=== PATIENT | male | born 1990 | race Caucasian/White ===

== ENCOUNTER 2017-09-22 15:42 | Inpatient (IN) | payer MEDICARE, MEDICAID ==
[2017-09-22 16:18] LABS: Bilirubin Small (Negative); Blood, Urine Small (Negative); Clarity TURBID (Clear); Glucose, Urine (Dipstick) Negative (Negative); Leukocyte Trace (Negative); Nitrite Negative (Negative); Protein, Urine (Dipstick) 100 mg/dL (Neg-Trace); Specific Gravity, Urine 1.033 (1.002-1.036); pH, Urine 5.5 (5.0-9.0)
[2017-09-22 16:24] LABS: RBC/HPF 0-3 HPF (0-3); WBC/HPF 0-3 HPF (0-3)
[2017-09-22 16:26] LABS: Mean Corpuscular HGB CONC 33.5 g/dL (32.0-36.0); Mean Corpuscular Hemoglobin 36.3 pg (27.0-31.0); RBC Distribution Width 12.3 % (11.5-14.5); Red Blood Cell (RBC) Count 5.52 mill/uL (4.70-6.10); White Blood Cell (WBC) Count 20.6 thou/uL (4.8-10.8)
[2017-09-22 16:27] LABS: Pathc Cast-AUWi Flag 12.06 (0-2.49); Yeast-AUWi Flag 65.3 (0-25.0)
[2017-09-22 16:39] LABS: Bacteria/HPF 3+ HPF (None Seen); Hyaline Casts/LPF 0-3 HYALINE CAST LPF (0-3 Hyaline); Renal Epithelial None Seen HPF (0-3); Transitional Epithelial NONE SEEN HPF (0-3)
[2017-09-22 16:40] LABS: Manual Microscopic Reviewed? No Path Casts Seen
[2017-09-22 16:45] LABS: Base Excess-Venous -2.5 mmol/L (-30.0-30.0); Bicarbonate (HCO3v) 20.4 mmol/L (1.0-85.0); CO2 Tension (PvCO2) 31.5 mmHg (41.0-51.0); Calcium, Ionized 1.02 mmol/L (1.12-1.32); Hemoglobin - Calc 22.7 g/dL (12.0-18.0); O2 Tension (PvO2) 83.3 mmHg (35.0-45.0); Potassium 7.1 mmol/L (3.4-4.7); T. Carbon Dioxide 21.4 mmol/L (1.0-85.0); pH (Venous) 7.419 (7.35-7.45); vO2 Saturation-calc 96.6 % (0.0-100.0)
[2017-09-22 16:45] LABS: Band 11 % (5-11); Lymphocytes 4 % (21-51); MDiff Complete? YES; Mean Platelet Volume 8.4 fL (7.4-10.4); Monocytes 6 % (0-10); Neutrophil 79 % (42-75); PLT Morphology Comment Appears Decreased; Platelet Count 111 thou/uL (130-400)
[2017-09-22 16:53] LABS: Troponin I 0.103 ng/mL (< 0.028)
[2017-09-22 16:54] LABS: ALT (SGPT) 13 U/L (8-55); AST (SGOT) 52 U/L (5-34); Albumin 3.9 g/dL (3.5-5.0); Alkaline Phosphatase 84 U/L (40-150); Anion Gap 20 mmol/L (10-20); BUN (Urea Nitrogen) 50 mg/dL (8.9-20.6); Bilirubin, Total 0.7 mg/dL (0.2-1.2); Calc. Creatinine Clearance 0 mL/min (70-130); Calcium 9.2 mg/dL (7.8-10.44); Carbon Dioxide 20 mmol/L (22-29); Chloride 99 mmol/L (98-107); Estimated GFR-MDRD 38; Globulin 2.8 g/dL (2.4-3.5); Glucose 95 mg/dL (70-105); Protein, Total 6.7 g/dL (6.0-8.3); Sodium 132 mmol/L (136-145)
[2017-09-22 17:01] LABS: Potassium 6.7 mmol/L (3.5-5.1)
[2017-09-22] MEDS ORDERED: Sodium Bicarb 50 MEQ/50 ML Abboject 8.4% SYRINGE ONE (17:22)
[2017-09-22] MEDS ORDERED: Dextrose 50% Abboject 50 ML SYRINGE ONE (17:22)
[2017-09-22] MEDS ORDERED: Insulin Regular 300 UNITS/3 ML VIAL ONE (17:22)
[2017-09-22] MEDS ORDERED: Aspirin 325 MG TAB ONE (17:22)
[2017-09-22] MEDS ORDERED: Calcium Gluc 4.6 MEQ/10 ML (100 MG/ML) ONE (17:22)
[2017-09-22] MEDS ORDERED: Albuterol Sulfate 2.5 mg/3 ml Neb ONE (17:26)
[2017-09-22] MEDS ORDERED: Albuterol Sulfate 2.5 mg/0.5 ml Neb ONE (17:26)
[2017-09-22] MEDS ORDERED: Sodium Chloride 0.9% 1,000 ML IV SCH (19:34)
[2017-09-22 19:45] LABS: Troponin I 0.109 ng/mL (< 0.028)
[2017-09-22] MEDS: Sodium Chloride 0.9% 1,000 ML IV SCH (21:26)
[2017-09-22] MEDS: Famotidine/PF 20 mg/2ml Vial SLOW IVP SCH (21:27)
[2017-09-22] MEDS: Morphine 4 MG/ML Carpuject SLOW IVP PRN (21:31)
--- NOTE | 2017-09-22 22:27 | HP ---
DATE OF ADMISSION: 09/22/2017 TIME OF SERVICE: 1900 hours. CHIEF COMPLAINT: Transfer for acute renal failure. HISTORY OF PRESENT ILLNESS: Mr. Sommers is a 26-year-old white male, who is a resident of the [facility]. He has some baseline mental retardation, psychiatric issues including bipolar disorde r, PTSD and mild mental retardation. He was in normal state of health until today, started complaining of abdominal pain. He was having s ome nausea and vomiting, unable to keep fluids down, so he was sent to [facility] in [place] for evaluation. There, he was found to have a lipase of 8200, his creatinine was noted to be 2 .66 and his potassium was 5.7. He was given IV fluids, treatment for high potassium and transferred here. On arrival here, his initial potassium was 7.1, repeated was down to 6.7. Creatinine was improved do wn to 2.13, but his BUN was still elevated at 50 and certainly greater than in the [address] sc an from the outside hospital was reviewed and showed constipation and pancreatitis and we were subseq uently called for admission. Initial lactic acid 3.4, now down to 2.1. The patient says he is still having some pain, but had no further nausea or vomiting. He denies any fevers and chills. No chest pain or difficulty breathing. No diarrhea and is chronically constipate d. PAST MEDICAL HISTORY: 1. Hypertension. 2. Chronic constipation. 3. Hypothyroidism. 4. Seizure disorder. 5. Bilateral axillary infections in the past, looks like hidradenitis. 6. Mild mental retardation. 7. Possible Parkinson disease. 8. PTSD. 9. Bipolar disorder. 10. Nicotine dependence. 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 12. Antisocial personality disorder. PAST SURGICAL HISTORY: Include right medial index finger and nerve transposition. HOME MEDICATIONS: Per the chart sent with the patient; 1. Divalproex 1500 mg ER at bedtime. 2. Docusate 200 mg p.o. b.i.d. 3. Levothyroxine 137 mcg daily. 4. Loratadine 10 mg daily. 5. Oxcarbazepine 300 mg p.o. nightly and 600 mg 3 times a day at 0730 hours, 1200 hours, 2030 hours. 6. Polyethylene glycol 17 grams daily. 7. Benztropine 1 mg oral t.i.d. 8. Clonazepam 1 mg p.o. daily at noon and 2 mg p.o. at bedtime. 9. Haloperidol 4 mg p.o. q.a.m., 2 mg p.o. at bedtime and 5 mg p.o. q.p.m. 10. Ziprasidone 40 mg p.o. at noon and 20 mg p.o. at bedtime. 11. Mag citrate as needed for constipation. 12. Bisacodyl 10 mg rectal suppository as needed for constipation. 13. Calcium carbonate 600 mg tablets 1500 mg totally daily. 14. Terbinafine 250 mg daily. 15. Amantadine 100 mg p.o. b.i.d. 16. Benazepril 10 mg p.o. daily. 17. Zinc gluconate 50 mg p.o. t.i.d. 18. Melatonin 6 mg p.o. at bedtime. 19. Trileptal 300 mg p.o. at bedtime. ALLERGIES: CHLORPROMAZINE, LORAZEPAM and RISPERIDONE. FAMILY HISTORY: Unknown. SOCIAL HISTORY: Significant for tobacco about 1/2 pack per day. No IV drug abuse and no alcohol use . REVIEW OF SYSTEMS: A 10-point review of systems was performed. The patient declined any other probl ems other than abdominal pain. Due to his psychiatric and mental retardation, I am unsure of the rel iability. PHYSICAL EXAMINATION: VITAL SIGNS: Temperature 99.2, pulse 118, blood pressure 169/111, respiratory rate 36, satting 97% o n room air. GENERAL: He is awake. He is alert. He is oriented x3. He is an overweight, well-nourished, white male, who appears to be in no acute distress. He is tachypneic and breathing shallow, but appears co mfortable. HEENT: Normocephalic, atraumatic. His pupils are equal, round, and reactive to light bilaterally, m ucous membranes are moist. He had no visible lesions. No thrush. NECK: Supple, without lymphadenopathy, JVD, or thyromegaly. LUNGS: Clear. He has no wheezes, no rales, no rhonchi with good air movement. ABDOMEN: Abdomen is slightly firm. It is distended and slightly tympanitic. He has got quiet bowel sounds in all 4 quadrants, but they are present. He has got tenderness diffusely without rebound, r igidity or guarding. EXTREMITIES: Showed no cyanosis, no clubbing, no edema. SKIN: Warm, moist, and well perfused. He has no active rashes or lesions. He does have some scarri ng in the bilateral axilla. NEUROLOGIC: Shows cranial nerves II-XII are grossly intact. Does have some right lateral strabismus , but the extraocular muscles do appear functional. He has 5/5 strength in all 4 of his extremities. No focal deficits. MUSCULOSKELETAL: Normal to inspection. He has no large joint inflammation or palpable effusions. LABORATORY DATA: Sodium is 132, potassium on arrival 6.7, chloride 99, bicarbonate 20, BUN 50, creat inine 2.13 down from 2.66 earlier, glucose of 95, and calcium 9.2. Liver functions are normal except for an AST slightly elevated at 52. CBC showed a white count of 28.6 down to 24,000 at the outside facility. Hemoglobin is 20.0, hematocrit of 59.8, and platelet count is 111,000. He has 79% granulo cytes, 11% bands, and 4% lymphocytes. VBG was fairly normal. Urinalysis showed 3+ bacteria, 3-6 epithelial cells, trace leukocyte esterase and negative nitrite. CK-MB was slightly elevated at 6.0. Troponin I was indeterminate at 0.013. Lactic acid initially 3. 4 down to 2.1 here. At the outside facility, the amylase was 1233 and lipase was 8295. A CT scan showed enlargement of the pancreas. There was no evidence of necrosis and no fluid collect ions, it also showed diffuse constipation. ASSESSMENT AND PLAN: 1. Acute pancreatitis. The patient per the records has never had this before. Make him n.p.o. Vikram ce him on IV fluids and get serial lipase in the morning. A CT scan did not describe any ductal dila tion. Still has gallbladder in place, but there is a slight gallbladder enlargement without evidence of stones. We will watch him overnight. Liver functions again are fairly normal. 2. Hypertension. We will have p.r.n. hydralazine available as he is n.p.o. for now. 3. Chronic constipation, have to come out this later. The patient takes MiraLax, docusate, and bisa codyl regularly. 4. Hypothyroidism on levothyroxine. We will hold that for now as he is n.p.o. 5. Nicotine dependence. 6. History of seizure disorder, on oxcarbazepine and divalproex. These will be on hold as he is n.p .o. 7. History of mental retardation. 8. History of post traumatic stress disorder, bipolar disorder, antisocial personality disorder. Hi s oxcarbazepine, benztropine, clonazepam, haloperidol, ziprasidone, amantadine and Trileptal will be on hold for now.
[2017-09-22 22:49] LABS: Potassium 6.4 mmol/L (3.5-5.1)
[2017-09-22] MEDS: Ondansetron HCl/PF 4 MG/2 ML Vial IVP PRN (23:06)
[2017-09-23] MEDS: Morphine 4 MG/ML Carpuject SLOW IVP PRN ×5 (02:54→21:55)
[2017-09-23] MEDS ORDERED: Sodium Chloride 0.9% 500 ML IVPB SCH (04:15)
[2017-09-23] MEDS: Sodium Chloride 0.9% 1,000 ML IV SCH ×2 (04:45→13:27)
[2017-09-23 06:03] LABS: ALT (SGPT) 12 U/L (8-55); AST (SGOT) 40 U/L (5-34); Albumin 3.2 g/dL (3.5-5.0); Alkaline Phosphatase 77 U/L (40-150); Anion Gap 14 mmol/L (10-20); BUN (Urea Nitrogen) 43 mg/dL (8.9-20.6); Bilirubin, Total 0.5 mg/dL (0.2-1.2); Calc. Creatinine Clearance 118 mL/min (70-130); Calcium 9.1 mg/dL (7.8-10.44); Carbon Dioxide 21 mmol/L (22-29); Chloride 101 mmol/L (98-107); Estimated GFR-MDRD 61; Globulin 2.7 g/dL (2.4-3.5); Glucose 90 mg/dL (70-105); Magnesium 1.8 mg/dL (1.6-2.6); Potassium 6.2 mmol/L (3.5-5.1); Protein, Total 5.9 g/dL (6.0-8.3); Sodium 130 mmol/L (136-145)
[2017-09-23 06:50] LABS: Hemoglobin 17.6 g/dL (14.0-18.0); Mean Corpuscular HGB CONC 33.2 g/dL (32.0-36.0); Mean Corpuscular Hemoglobin 35.9 pg (27.0-31.0); Mean Platelet Volume 8.3 fL (7.4-10.4); Platelet Count 120 thou/uL (130-400); RBC Distribution Width 12.3 % (11.5-14.5); Red Blood Cell (RBC) Count 4.91 mill/uL (4.70-6.10); White Blood Cell (WBC) Count 19.4 thou/uL (4.8-10.8)
[2017-09-23] MEDS: Famotidine/PF 20 mg/2ml Vial SLOW IVP SCH ×2 (07:48→20:27)
[2017-09-23] MEDS ORDERED: FLU VACC QS2017-18 36 mo. & older 0.5 ML SYRINGE IM ONE (09:00)
[2017-09-23 09:06] LABS: Band 34 % (5-11); Eosinophils 1 % (0-10); Lymphocytes 7 % (21-51); MDiff Complete? YES; Macrocytosis SLIGHT = 6-15 cells (100X) (0-5/hpf); Metamyelocyte 1 % (0-0); Monocytes 7 % (0-10); Neutrophil 49 % (42-75); PLT Morphology Comment Appears Decreased; Reactive Lymphocytes 1 % (0-10)
[2017-09-23] MEDS: Meropenem 1 GM in Sterile Water 20 ML SLOW IVP SCH ×2 (13:27→21:55)
[2017-09-23] MEDS ORDERED: Meropenem 1 GM in Sodium Chloride 0.9% 100 ML IVPB SCH (14:00)
--- NOTE | 2017-09-23 15:15 | PDOC.PN ---
- Subjective Encounter Start Date: 09/23/17 Encounter Start Time: 15:13 Subjective: Seen and examined gradually getting aggitated - Objective Resuscitation Status: Resuscitation Status FULL:Full Resuscitation Vital Signs & Weight: Vital Signs (12 hours) Temp Pulse Resp BP Pulse Ox 09/23/17 11:26 98.4 F 125 H 17 142/92 H 90 L 09/23/17 08:00 99.0 F 121 H 24 H 140/84 92 L 09/23/17 04:20 100.6 F H 120 H 40 H 137/87 90 L Weight Weight 229 lb 8 oz Result Diagrams: 09/23/17 05:04 09/23/17 05:04 Additional Labs: Accuchecks 09/22/17 18:57 POC Glucose 104 Phys Exam - Physical Examination Constitutional: NAD HEENT: PERRLA, moist MMs, sclera anicteric, TM's clear Neck: no nodes, no JVD, supple, full ROM Respiratory: no wheezing, no rales, no rhonchi, clear to auscultation bilateral Cardiovascular: RRR, no significant murmur, no rub Gastrointestinal: non-tender, no distention, positive bowel sounds Musculoskeletal: no edema, pulses present Dx/Plan (1) Pancreatitis Code(s): K85.90 - ACUTE PANCREATITIS WITHOUT NECROSIS OR INFECTION, UNSP Status: Acute (2) Hyperkalemia Code(s): E87.5 - HYPERKALEMIA Status: Acute (3) Metabolic acidemia Code(s): E87.2 - ACIDOSIS Status: Acute (4) Mental retardation Code(s): F79 - UNSPECIFIED INTELLECTUAL DISABILITIES Status: Acute (5) Post traumatic stress disorder Code(s): F43.10 - POST-TRAUMATIC STRESS DISORDER, UNSPECIFIED Status: Acute (6) Hypothyroid Code(s): E03.9 - HYPOTHYROIDISM, UNSPECIFIED Status: Acute (7) ARF (acute renal failure) Status: Acute - Plan PT/OT, health care social worker Resume all psychotropic meds -: Change IVF to Hco3 based infusion -: Permanantly d/c Lotensin due to hyperkalemia * .
--- NOTE | 2017-09-23 15:27 | CON ---
DATE OF CONSULTATION: 09/23/2017 HISTORY: He is a 26-year-old mentally challenged gentleman from [email or web address] who has been admi tted for abdominal pain over 24 hours. He was taken to [facility], transferred to this hospit al with renal failure, pancreatitis and elecrolytes. Obviously the patient is unable to give any history. He is saying he has pain in his abdomen. When I examine his abdomen he says "do not touch my abdomen". There is a acid supervisor from [employer] that says he has been there since age of 9. He smokes a pack a day, but he is unable to drink any alcoho l there. He denies any difficulty breathing. PAST MEDICAL HISTORY: As outlined, hypertension, hypothyroidism, tobacco abuse, seizure disorders, c hronic skin changes. Mental retardation. Post-traumatic syndrome. PAST SURGICAL HISTORY: Some kind of surgery on his index finger. MEDICATIONS: They brought a list of his medicines from the long-term includes Divalproex 1500 mg ER once a day, Synthroid 137, loratadine 10, oxcarbazepine 300 at nighttime 600 3 times a day, polyet hylene glycol, benztropine 1 mg, clonazepam 2 mg, Haldol 5 mg at nighttime, 4 mg orally with meals, z iprasidone 40 mg at noon, 20 mg at nighttime, magnesium, several diuretics, Terbinafine 250 once a day, amantadine 100, benazepril 10, zinc, melatonin 6, clonazepam 0.125 in the morning, clonazepam 1 mg at noon, Haldol 2 mg at nighttime and Trileptal 3 mg a day. SOCIAL HISTORY: Tobacco use. FAMILY HISTORY: Unobtainable. There are no family members according to the acid supervisor. None come by there at all. ALLERGIES: Apparently include THORAZINE, ATIVAN and RISPERDAL. REVIEW OF SYSTEMS: Obviously review of systems difficult to obtain. PHYSICAL EXAMINATION: VITAL SIGNS: Sats are 92 on 2 liters, respirations 24, he is , pulse 121, temperature 99, blood pressure 140/84. CHEST: Chest revealed decreased breath sounds. CARDIAC: Sinus tach. ABDOMEN: Distended. LABORATORY: White count 19,000, H&H 17 and 33, platelet count is 120. Electrolytes; sodium 130, pot assium venous 6.2, BUN and creatinine 41 and 0.40. Albumin is 3.2. There is a CT report brought from the hospital which shows evidence of presumably pancreatitis, fecal impaction, diverticulitis. IMPRESSION: 1. Acute abdomen and possibly pancreatitis secondary to gallbladder disease. 2. Mental retardation. 3. Personality disorder. 4. Polypharmacy. 5. Renal failure. 6. Tobacco abuse. PLAN: I would empirically start him on broad-spectrum antibiotics. Continue supportive care. GI in put. I will follow. Consultation note of which 70 minutes, 50% spent at the bedside with direct patient care.
[2017-09-23] MEDS: Ziprasidone 20 MG CAP PO SCH ×2 (16:31→20:26)
[2017-09-23] MEDS: Haloperidol 1 MG TAB PO SCH (16:31)
[2017-09-23] MEDS: Haloperidol 5 MG TAB PO SCH (16:31)
[2017-09-23] MEDS: Sodium Bicarbonate 150 MEQ in Dextrose 5% in Water 1,000 ML IV SCH (17:39)
--- NOTE | 2017-09-23 19:10 | CON ---
DATE OF CONSULTATION: 09/23/2017 HISTORY OF PRESENT ILLNESS: The patient is a 26-year-old mentally retarded gentleman who was transfe rred here from [facility] in [place] for pancreatitis. The patient reports that he is h aving abdominal pain, but also wants to eat. He denies any prior history of pancreatitis; however, jung max is a poor historian. MEDICATIONS: Include ziprasidone 20 mg at bedtime and q.p.m.; benztropine 0.5 mg q.p.m., q.a.m., and noon; Senna 1 p.o. daily for constipation; Bisacodyl 10 mg rectal suppository b.i.d. for constipatio n; haloperidol 4 mg q.a.m. and q.p.m.; calcium and vitamin D supplementation; Lamisil 250 mg p.o. brent ly; amantadine 100 mg 1 p.o. b.i.d.; benazepril 10 mg p.o. daily; zinc gluconate 50 mg p.o. t.i.d.; c lonazepam 0.125 mg 1 p.o. q.a.m.; MiraLax 17 grams p.o. daily; levothyroxine 137 mcg p.o. daily; Depa kote 1500 mg p.o. at bedtime; Trileptal 300 mg p.o. at bedtime; loratadine 10 mg p.o. q.a.m. ALLERGIES: Include THORAZINE, ATIVAN, and RISPERDAL. SOCIAL HISTORY: [facility]. FAMILY HISTORY: Unobtainable. REVIEW OF SYSTEMS: Unobtainable. PAST MEDICAL/SURGICAL HISTORY: Includes hypertension, constipation, hypothyroidism, seizure disorder , and mental retardation. PHYSICAL EXAMINATION: GENERAL: Shows a young mentally retarded white male, in no acute distress. VITAL SIGNS: Temperature 99.6, pulse of 124, respiratory rate 24, blood pressure 131/82. HEENT: Unremarkable. NECK: Supple. CHEST: Clear. CARDIOVASCULAR: Regular rate and rhythm. ABDOMEN: Somewhat tender diffusely with some rebound and tympanitic diffusely. RECTAL: Deferred. EXTREMITIES: Normal. NEUROLOGIC: Nonfocal. [facility], sodium 129, potassium 6.7, chloride 95, BUN 46, creatinine 2.6 6, AST of 58, ALT of 15, lipase of 80-95, amylase of 12.33. White blood cell count was 22.9 with hem oglobin of 20.7, hematocrit 58.0. Lactic acid is 34, glucose of 60. Abdominal series shows constipa tion. CT of the abdomen and pelvis without contrast shows diffuse enlargement of pancreas associated with peripancreatic stranding and a moderate amount of free fluid. Pancreas was heterogeneous, larg e fecal load was noted, duodenal diverticulum, ground glass attenuation at both lung bases, and small hiatal hernia. CBC today shows a white blood cell count of 19.4, hemoglobin 17.6, hematocrit 53.1 w ith MCV of 108, platelet count 120. Chemistry shows sodium 130, potassium 6.2, CO2 21, BUN 43, creat inine 1.40, total bilirubin of 0.5, AST of 40. Urinalysis shows small blood. ASSESSMENT: 1. Acute idiopathic pancreatitis. 2. Prerenal azotemia. 3. Hyperkalemia. 4. Mental retardation. RECOMMENDATIONS: 1. More aggressive IV fluids. 2. Possibly try to get a gallbladder ultrasound once episode is improved. 3. Triglyceride level if not already performed. 4. Continue n.p.o. status.
[2017-09-23] MEDS: OXcarbazepine 300 MG TAB PO SCH ×2 (20:25→20:26)
[2017-09-23] MEDS: Amantadine HCl 100 mg Capsule PO SCH (20:26)
[2017-09-23] MEDS: clonazePAM 1 MG TAB PO SCH (20:26)
[2017-09-23] MEDS: Benztropine 1 MG TAB PO SCH (20:26)
[2017-09-23] MEDS: Pantoprazole 40 MG VIAL IVP SCH (20:27)
[2017-09-23] MEDS: Melatonin 3 MG TAB PO SCH (20:27)
[2017-09-24] MEDS ORDERED: Acetaminophen 650 MG Suppository PR PRN (00:34)
[2017-09-24] MEDS ORDERED: Acetaminophen 1,000 MG in Premix Bag 1 BAG IVPB SCH (00:45)
[2017-09-24] MEDS: Sodium Bicarbonate 150 MEQ in Dextrose 5% in Water 1,000 ML IV SCH ×3 (02:26→20:21)
[2017-09-24] MEDS: Morphine 4 MG/ML Carpuject SLOW IVP PRN ×3 (03:47→17:53)
[2017-09-24] MEDS: Levothyroxine Sodium 25 MCG TAB PO SCH (06:14)
[2017-09-24] MEDS: Meropenem 1 GM in Sterile Water 20 ML SLOW IVP SCH ×3 (06:14→21:40)
[2017-09-24] MEDS: Levothyroxine Sodium 112 MCG TAB PO SCH (06:14)
[2017-09-24 06:27] LABS: ALT (SGPT) 10 U/L (8-55); AST (SGOT) 22 U/L (5-34); Albumin 2.8 g/dL (3.5-5.0); Alkaline Phosphatase 85 U/L (40-150); Anion Gap 11 mmol/L (10-20); BUN (Urea Nitrogen) 27 mg/dL (8.9-20.6); Bilirubin, Total 0.6 mg/dL (0.2-1.2); Calc. Creatinine Clearance 189 mL/min (70-130); Calcium 8.9 mg/dL (7.8-10.44); Carbon Dioxide 26 mmol/L (22-29); Chloride 96 mmol/L (98-107); Estimated GFR-MDRD Greater than 90; Globulin 2.7 g/dL (2.4-3.5); Glucose 126 mg/dL (70-105); Lipase 296 U/L (8-78); Potassium 4.3 mmol/L (3.5-5.1); Protein, Total 5.5 g/dL (6.0-8.3); Sodium 129 mmol/L (136-145)
[2017-09-24 06:30] LABS: Band 20 % (5-11); Hemoglobin 15.6 g/dL (14.0-18.0); Lymphocytes 2 % (21-51); MDiff Complete? YES; Mean Corpuscular HGB CONC 33.6 g/dL (32.0-36.0); Mean Platelet Volume 8.2 fL (7.4-10.4); Monocytes 27 % (0-10); Neutrophil 51 % (42-75); PLT Morphology Comment Appears Decreased; Platelet Count 102 thou/uL (130-400); Red Blood Cell (RBC) Count 4.33 mill/uL (4.70-6.10); White Blood Cell (WBC) Count 11.5 thou/uL (4.8-10.8)
--- NOTE | 2017-09-24 07:54 | ULT ---
GALLBLADDER ULTRASOUND: HISTORY: Pancreatitis, constipation, abdominal tenderness to touch. COMPARISON: None. TECHNIQUE: Utilizing a multihertz transducer, sonographic imaging of the right quadrant was performed in the omayra gitudinal and transverse plane. FINDINGS: Pancreas is obscured by bowel gas. A small right-sided pleural effusion is noted. Main portal vein is patent. Appropriate directional flow. Hepatic parenchyma has a normal echotexture. No hepatic masses or intrahepatic dilatation. Contour of the hepatic margin is maintained. Right upper lobe measures 19.7 cm. The right kidney has an overall normal echotexture. No hydronephrosis. The right kidney measures 5. 2 x 6.0 x 13.3 cm. Within the lumen of the gallbladder, there is evidence of sludge and stones. Gallbladder is mildly d istended. There is no pericholecystic fluid. Gallbladder wall thickness is at the upper limits of n ormal. Pv Installer Tech reports tenderness throughout the entire abdomen. Suboptimal evaluation of the common bile duct. IMPRESSION: Sonographic evidence of cholelithiasis with findings that are suggestive of cholecystitis. HIDA scan is recommended. POS: [facility]
[2017-09-24] MEDS: Pantoprazole 40 MG VIAL IVP SCH ×2 (08:43→20:21)
[2017-09-24] MEDS: Famotidine/PF 20 mg/2ml Vial SLOW IVP SCH ×2 (08:44→20:21)
[2017-09-24] MEDS: clonazePAM 0.5 MG TAB PO SCH (08:44)
[2017-09-24] MEDS: clonazePAM 1 MG TAB PO SCH ×2 (08:44→20:23)
[2017-09-24] MEDS: Haloperidol 1 MG TAB PO SCH ×2 (08:45→17:58)
[2017-09-24] MEDS: Benztropine 1 MG TAB PO SCH ×3 (08:45→20:22)
[2017-09-24] MEDS: Terbinafine 250 MG TAB PO SCH (08:48)
[2017-09-24] MEDS: Terbinafine 1% 30 GM TUBE TOP SCH (08:49)
[2017-09-24] MEDS: OXcarbazepine 300 MG TAB PO SCH ×4 (08:49→20:23)
[2017-09-24] MEDS: Amantadine HCl 100 mg Capsule PO SCH ×2 (08:49→20:22)
[2017-09-24] MEDS ORDERED: clonazePAM 0.5 MG TAB PO SCH (09:00)
--- NOTE | 2017-09-24 09:03 | RAD ---
PORTABLE CHEST 1 VIEW: Date: 09/24/17 Time: 0824 hours HISTORY: CHF. FINDINGS/IMPRESSION: The heart size is borderline. Mild bibasilar infiltrates are noted. No pneumothoraces, girish pulmonar y edema, or large effusions are seen. POS: [facility]
[2017-09-24] MEDS: Ziprasidone 20 MG CAP PO SCH ×3 (11:16→20:22)
--- NOTE | 2017-09-24 11:42 | PRG ---
DATE OF SERVICE: 09/24/2017 He is awake, alert, responsive. Denies any abdominal pain. PHYSICAL EXAMINATION: VITAL SIGNS: Blood pressure 140/82, O2 sat 98 on room air, temperature 99, respiratory rate 18. CHEST: Chest revealed decreased breath sounds without any wheezing. CARDIAC: Normal S1-S2. No gallops. LABORATORY: His white count 11,000, H&H 15 and 46, platelet count 102, a big left shift, 30 segs. L actate . Sodium 129, alkaline phosphatase is normal. Lipase 296. IMPRESSION: 1. Pancreatitis secondary to probably gallbladder disease. 2. Bipolar mental retardation. 3. Electrolyte imbalance. PLAN: He probably needs surgical consult for his abdominal pain and possibly gallbladder associated pancreatitis. Continue meropenem, continue supportive care, continue neb treatments. I will follow.
--- NOTE | 2017-09-24 11:46 | PQF ---
DATE: 09-24-17 ATTN: DR. INDRA CHASE Please exercise your independent, professional judgment in responding to the clarification form. Clinical indicators are provided on the bottom of this form for your review Please check appropriate box(es): [ ] Sepsis [ ] SIRS due to non-infectious process (please specify etiology) [ ] with organ dysfunction [ ] without organ dysfunction [ ] Severe sepsis with acute organ dysfunction of: (Examples: respiratory failure, encephalopathy, acute kidney failure, other) [ ] Other diagnosis [ ] Unable to determine In addition, please specify: Present on Admission (POA): [ ] Yes [ ] No [ ] Unable to determine For continuity of documentation, please document condition throughout progress notes and discharge summary. Thank You. CLINICAL INDICATORS - SIGNS / SYMPTOMS / LABS ER: XFER SEPSIS WBC: 2-14-18: 20.6 2-15-18: 19.4 2-16-18: 11.5 BANDS: 2-14-18: 11 2-15-18: 34 2-16-18: 20 TEMP: 2-14-18: 101 2-15-18: 101, 100.8, 100.6, 100.5, 2-16-18: 101.4, 99.8 PULSE: ( ER) 117, 118, 123, 124, RR: (ER) 28, 36, 36, 34, 43, 42, 40, 35, 25 H&P: INITIAL LACTIC ACID 3.4, NOW DOWN TO 2.1, ACUTE PANCREATITIS CONSULT NOTE DR. BRADLEY : ACUTE ABDOMEN AND POSSIBLY PANCREATITIS SECONDARY TO GALLBLADDER DISEASE RISK FACTORS: CONSULT NOTE DR. BRADLEY : ACUTE ABDOMEN AND POSSIBLY PANCREATITIS SECONDARY TO GALLBLADDER DISEASE TREATMENTS: (ER) IVF (MAR) MEROPENEM DAILY LABS (This form is maintained as a part of the permanent medical record) 2014 [employer] All Rights Reserved [email or web address] Office: [phone] [facility]
--- NOTE | 2017-09-24 14:34 | RAD ---
ABDOMEN 2 VIEWS: Date: 09/24/17 HISTORY: Constipation. COMPARISON: None. FINDINGS: There appear to be multiple air-filled loops of small bowel. There is also moderate distention of the colon. There appears to be air attenuation down to the level of the distal descending colon. The elaine unt of fecal material is not entirely compatible with constipation. However, given air-filled loops o f small bowel, the possibility of an obstructive process must be considered. Ileus must also be consi dered given colonic prominence. Better interrogation with CT is recommended. IMPRESSION: 1. Fecal material without definite radiographic evidence of constipation. 2. Prominent air-filled loops of small bowel with some mild chronic distention. Ileus is favored. A partial obstructive process cannot be excluded. CT is recommended. POS: [facility]
--- NOTE | 2017-09-24 15:33 | PDOC.PN ---
- Subjective Encounter Start Date: 09/24/17 Encounter Start Time: 15:33 Subjective: Seen and examined feeling sick - Objective Resuscitation Status: Resuscitation Status FULL:Full Resuscitation Vital Signs & Weight: Vital Signs (12 hours) Temp Pulse Resp BP Pulse Ox 09/24/17 11:40 99.8 F H 111 H 22 H 129/84 87 L 09/24/17 11:31 94 L 09/24/17 11:28 113 H 25 H 94 L 09/24/17 08:16 99.8 F H 117 H 23 H 85 L 09/24/17 07:10 99.1 F 19 142/87 H 09/24/17 05:33 91 L 09/24/17 03:55 98.6 F 113 H 25 H 137/81 91 L Weight Weight 229 lb 8 oz I&O: 09/23/17 09/24/17 09/25/17 06:59 06:59 06:59 Intake Total 1950 Output Total 900 Balance 1050 Result Diagrams: 09/24/17 04:51 09/24/17 04:51 Phys Exam - Physical Examination Constitutional: NAD HEENT: PERRLA, moist MMs, sclera anicteric, TM's clear, oral pharynx no lesions Neck: no nodes, no JVD, supple, full ROM Respiratory: no wheezing, no rales, no rhonchi Cardiovascular: RRR, no significant murmur, no rub Gastrointestinal: soft, non-tender, no distention, positive bowel sounds Dx/Plan (1) Pancreatitis Code(s): K85.90 - ACUTE PANCREATITIS WITHOUT NECROSIS OR INFECTION, UNSP Status: Acute (2) Hyperkalemia Code(s): E87.5 - HYPERKALEMIA Status: Acute (3) Metabolic acidemia Code(s): E87.2 - ACIDOSIS Status: Acute (4) Mental retardation Code(s): F79 - UNSPECIFIED INTELLECTUAL DISABILITIES Status: Acute (5) Post traumatic stress disorder Code(s): F43.10 - POST-TRAUMATIC STRESS DISORDER, UNSPECIFIED Status: Acute (6) Hypothyroid Code(s): E03.9 - HYPOTHYROIDISM, UNSPECIFIED Status: Acute (7) ARF (acute renal failure) Status: Acute (8) Cholelithiasis Code(s): K80.20 - CALCULUS OF GALLBLADDER W/O CHOLECYSTITIS W/O OBSTRUCTION Status: Acute (9) Cholecystitis Code(s): K81.9 - CHOLECYSTITIS, UNSPECIFIED Status: Acute (10) Pneumonia Code(s): J18.9 - PNEUMONIA, UNSPECIFIED ORGANISM Status: Acute (11) UTI (urinary tract infection) Status: Acute - Plan continue antibiotics, social media analyst, respiratory therapy Appreciate GI and pulmonary input -: Surgery consulted -: NPO * .
--- NOTE | 2017-09-24 17:35 | CON ---
DATE OF CONSULTATION: 09/24/2017 CHIEF COMPLAINT: Abdominal pain. HISTORY OF PRESENT ILLNESS: This is a 26-year-old male who is a resident of [facility] who presents with a history of severe abdominal pain, admitted to the medical service and has been found to have pancreatitis. He also has gallstones. I was consulted for question of cholecystectomy. Th ere is no previous history of gallstones, jaundice, or pancreatitis. Ultrasound does show gallstones and sludge with a suboptimal visualization of the common bile duct. The patient has been complainin g of pain all day. Plain x-rays of the abdomen revealed pre-significant fecal material in the colon. The history is very limited secondary to the patient's mental disease, but he does state that his p ain is improved. PAST MEDICAL HISTORY: Includes hypertension, chronic constipation, seizure disorder, PTSD bipolar, p aranoid and antisocial personality disorders. PAST SURGICAL HISTORY: Finger. MEDICINES: See long list. ALLERGIES: CHLORPROMAZINE, LORAZEPAM, RISPERIDONE. SOCIAL HISTORY: He does smoke half a pack a day. No alcohol or other drugs. REVIEW OF SYSTEMS: Otherwise, negative unless described above. PHYSICAL EXAMINATION: VITAL SIGNS: His pulse is 112. Blood pressure is 142/79, pulse is 112, temperature 99.3. HEENT: Sclerae are anicteric. Oropharynx clear. NECK: No lymphadenopathy. CHEST: Clear. HEART: Increased rate, regular rhythm without murmurs. ABDOMEN: Diffusely tender and is very defensive, so a good exam is not able to be obtained. LABORATORY AND X-RAY FINDINGS: White blood cell count is 11, hemoglobin 15, platelet count is 102. He does have 20 bands. Sodium 129, potassium 4.3, creatinine is 0.87, lipase is 296 that was down fr om significant elevation before. Liver tests otherwise normal. ASSESSMENT: Likely gallstone pancreatitis, but pain is also likely associated with chronic constipat ion being full of stool. PLAN: We will allow clear liquids today tomorrow, let his labs trend down. Plan laparoscopic cholec ystectomy with cholangiogram before discharge.
--- NOTE | 2017-09-24 17:43 | PRG ---
DATE OF SERVICE: 09/24/2017 SUBJECTIVE: The patient is sleeping. He has been complaining less abdominal pain today. He has had no nausea or vomiting. OBJECTIVE: VITAL SIGNS: Shows a temperature 99.3, pulse 112, respiratory rate 22, blood pressure 142/79. CHEST: Clear. CARDIOVASCULAR: Regular rate and rhythm. ABDOMEN: Soft, protuberant, tympanitic, diffusely. Bowel sounds are hypoactive. LABORATORY DATA: Shows a white blood cell count of 11.5, hemoglobin 15.6, hematocrit 46.4, MCV of 10 7, platelet count of 102. Chemistry shows sodium of 129, CO2 96, BUN 27, creatinine 0.87, glucose 12 6, total protein 55, albumin 2.8, lipase of 296. Abdominal x-rays done earlier today show fecal mate rial without definite radiologic evidence of constipation, prominent air filled loops of small bowel with some mild chronic distention. Ileus is favored. Abdominal ultrasound showed sonographic eviden ce of cholelithiasis with findings that are suggestive of cholecystitis. HIDA scan was recommended; however, has not been performed probably secondary to the patient's inability to cooperate. ASSESSMENT: 1. Acute pancreatitis. 2. Cholelithiasis with possible cholecystitis. 3. Prerenal azotemia - improving. 4. Hyperkalemia - resolved. 5. Mental retardation. 6. Ileus. RECOMMENDATIONS: 1. Continue aggressive IV hydration. 2. Surgical opinion for possible cholecystectomy. 3. NPO.
[2017-09-24] MEDS: Haloperidol 5 MG TAB PO SCH (17:58)
[2017-09-24] MEDS: Melatonin 3 MG TAB PO SCH (20:24)
[2017-09-25] MEDS: Ondansetron HCl/PF 4 MG/2 ML Vial IVP PRN (01:19)
[2017-09-25] MEDS: Sodium Bicarbonate 150 MEQ in Dextrose 5% in Water 1,000 ML IV SCH ×3 (05:22→22:18)
[2017-09-25] MEDS: Meropenem 1 GM in Sterile Water 20 ML SLOW IVP SCH ×3 (05:22→20:59)
[2017-09-25] MEDS: Levothyroxine Sodium 112 MCG TAB PO SCH (05:22)
[2017-09-25] MEDS: Levothyroxine Sodium 25 MCG TAB PO SCH (05:22)
[2017-09-25] MEDS: Morphine 4 MG/ML Carpuject SLOW IVP PRN (05:24)
[2017-09-25 05:51] VITALS: BMI 32.8
[2017-09-25 06:30] LABS: Band 23 % (5-11); Hemoglobin 13.9 g/dL (14.0-18.0); Lymphocytes 14 % (21-51); MDiff Complete? YES; Macrocytosis SLIGHT = 6-15 cells (100X) (0-5/hpf); Mean Corpuscular HGB CONC 34.7 g/dL (32.0-36.0); Mean Corpuscular Hemoglobin 36.9 pg (27.0-31.0); Monocytes 15 % (0-10); Neutrophil 48 % (42-75); PLT Morphology Comment Appears Decreased; Platelet Count 112 thou/uL (130-400); RBC Distribution Width 11.8 % (11.5-14.5); Red Blood Cell (RBC) Count 3.77 mill/uL (4.70-6.10); White Blood Cell (WBC) Count 10.5 thou/uL (4.8-10.8)
--- NOTE | 2017-09-25 07:53 | PDOC.GSPN ---
Surgery Progress Note: Subj - Subjective Patient reports: no new complaints Surgery Progress Note: Obj - Vital signs Vital signs: Vital Signs - Most Recent Temp Pulse Resp BP Pulse Ox 98.8 F 92 22 H 138/81 90 L 09/25/17 07:25 09/25/17 07:31 09/25/17 07:31 09/25/17 07:25 09/25/17 07:25 - Physical Exam General: no distress Abdomen: soft, tender (mild diffuse) Surgery Progress Note: Results - Labs Result Diagrams: 09/25/17 04:36 09/24/17 04:51 Lab results: Laboratory Results - last 24 hr 09/25/17 09/25/17 04:36 04:36 WBC 10.5 RBC 3.77 L Hgb 13.9 L Hct 40.2 L MCV 107.0 H MCH 36.9 H MCHC 34.7 RDW 11.8 Plt Count 112 L MPV 8.0 Neutrophils % (Manual) 48 Band Neuts % (Manual) 23 H Lymphocytes % (Manual) 14 L Monocytes % (Manual) 15 H Plt Morphology Comment Appears Decreased L Macrocytosis SLIGHT = 6-15 cells Lipase 116 H Surgery Progress Note: A/P - Problem (1) Gallstone pancreatitis Current Visit: Yes Code(s): K85.10 - BILIARY ACUTE PANCREATITIS WITHOUT NECROSIS OR INFECTION Status: Acute Assessment and Plan: lap armando with cholangiogram if consent able to be obtained
[2017-09-25] MEDS: Haloperidol 1 MG TAB PO SCH ×2 (09:14→17:20)
[2017-09-25] MEDS: clonazePAM 0.5 MG TAB PO SCH (09:15)
[2017-09-25] MEDS: Terbinafine 250 MG TAB PO SCH (09:15)
[2017-09-25] MEDS: Benztropine 1 MG TAB PO SCH ×3 (09:16→20:58)
[2017-09-25] MEDS: OXcarbazepine 300 MG TAB PO SCH ×4 (09:16→20:57)
[2017-09-25] MEDS: Amantadine HCl 100 mg Capsule PO SCH ×2 (09:17→20:57)
[2017-09-25] MEDS: clonazePAM 1 MG TAB PO SCH ×2 (09:17→20:58)
[2017-09-25] MEDS: Famotidine/PF 20 mg/2ml Vial SLOW IVP SCH ×2 (09:17→20:58)
[2017-09-25] MEDS: Pantoprazole 40 MG VIAL IVP SCH ×2 (09:18→20:57)
[2017-09-25] MEDS: Terbinafine 1% 30 GM TUBE TOP SCH (09:19)
--- NOTE | 2017-09-25 10:28 | PRG ---
DATE OF SERVICE: 09/25/2017 SUBJECTIVE: The patient complains of pain when palpating the abdomen. He has had no nausea, vomitin g. He says he is hungry. OBJECTIVE: VITAL SIGNS: Temperature 98.8, T-max of 100.6, pulse 92, respiratory rate 22, blood pressure 138/81. CHEST: Clear. CARDIOVASCULAR: Regular rate and rhythm. ABDOMEN: Somewhat protuberant, tender on palpation, slightly tympanitic. Bowel sounds are present. LABORATORY DATA: Shows a sodium 129, chloride 96, BUN 27, creatinine 0.87, glucose 126. Amylase tod ay is 116. CBC shows a white blood cell count of 10.5, hemoglobin 13.9, hematocrit 40.2, MCV of 107, platelet count 112, 23% bands. ASSESSMENT: 1. Gallstone pancreatitis. 2. Ileus - resolved. 3. Renal failure - resolved. 4. Mental retardation. RECOMMENDATIONS: 1. Begin clears. 2. Proceed with cholecystectomy when permit can be obtained.
[2017-09-25] MEDS: Ziprasidone 20 MG CAP PO SCH ×3 (11:59→21:26)
--- NOTE | 2017-09-25 14:16 | PDOC.PN ---
- Subjective Encounter Start Date: 09/25/17 Encounter Start Time: 14:14 Subjective: Seen and examined with no new complaint - Objective Resuscitation Status: Resuscitation Status FULL:Full Resuscitation Vital Signs & Weight: Vital Signs (12 hours) Temp Pulse Resp BP Pulse Ox 09/25/17 13:14 92 26 H 09/25/17 11:34 98.8 F 95 20 134/83 88 L 09/25/17 08:00 98.8 F 92 22 H 90 L 09/25/17 07:31 92 22 H 09/25/17 07:25 98.8 F 92 22 H 138/81 90 L 09/25/17 04:00 99.2 F 101 H 18 139/81 89 L Weight Weight 228 lb 14.4 oz I&O: 09/24/17 09/25/17 09/26/17 06:59 06:59 06:59 Intake Total 1950 4470 Output Total 900 2090 350 Balance 1050 2380 -350 Result Diagrams: 09/25/17 04:36 09/24/17 04:51 Phys Exam - Physical Examination Constitutional: NAD HEENT: PERRLA, moist MMs, sclera anicteric, TM's clear Neck: no nodes, no JVD, supple, full ROM Respiratory: no wheezing, no rales, no rhonchi, clear to auscultation bilateral Cardiovascular: RRR, no significant murmur, no rub Gastrointestinal: soft, non-tender, no distention, positive bowel sounds Musculoskeletal: no edema, pulses present Dx/Plan (1) Pancreatitis Code(s): K85.90 - ACUTE PANCREATITIS WITHOUT NECROSIS OR INFECTION, UNSP Status: Acute (2) Hyperkalemia Code(s): E87.5 - HYPERKALEMIA Status: Acute (3) Metabolic acidemia Code(s): E87.2 - ACIDOSIS Status: Acute (4) Mental retardation Code(s): F79 - UNSPECIFIED INTELLECTUAL DISABILITIES Status: Acute (5) Post traumatic stress disorder Code(s): F43.10 - POST-TRAUMATIC STRESS DISORDER, UNSPECIFIED Status: Acute (6) Hypothyroid Code(s): E03.9 - HYPOTHYROIDISM, UNSPECIFIED Status: Acute (7) ARF (acute renal failure) Status: Acute (8) Cholelithiasis Code(s): K80.20 - CALCULUS OF GALLBLADDER W/O CHOLECYSTITIS W/O OBSTRUCTION Status: Acute (9) Cholecystitis Code(s): K81.9 - CHOLECYSTITIS, UNSPECIFIED Status: Acute (10) Pneumonia Code(s): J18.9 - PNEUMONIA, UNSPECIFIED ORGANISM Status: Acute (11) UTI (urinary tract infection) Status: Acute - Plan continue antibiotics, social services designee, respiratory therapy Working on the consent-may be challenging -: Possible lap cholecystectomy s/p consent * .
[2017-09-25] MEDS: Haloperidol 5 MG TAB PO SCH (17:23)
[2017-09-25] MEDS: Melatonin 3 MG TAB PO SCH (21:03)
--- NOTE | 2017-09-25 21:18 | PRG ---
DATE OF SERVICE: 09/25/2017 SUBJECTIVE: Mr. Sommers has been hemodynamically stable. OBJECTIVE: VITAL SIGNS: He is afebrile, heart rate 86, respiratory rate is 18, oximetry is 92% on 2 liters, and blood pressure is 128/84. LUNGS: Clear. CARDIOVASCULAR: Regular rhythm. ABDOMEN: Soft. He has a detailer school photographs in the room with him. LABORATORY DATA: White count 10.5, hemoglobin 13.9, platelets 112,000. Sodium 129, potassium 4.3, c hloride 96, bicarbonate 26, BUN 27, creatinine 0.87, albumin is 2.8. Lipase is down to 116. IMPRESSION AND PLAN: Pancreatitis? secondary to cholelithiasis, cholecystitis and choledocholithiasi s, is clinically improving. It would be reasonable to move him out of the Intermediate Care Unit. Gunnar max really does not need cardiac monitoring at this point. The main issue at hand is who will sign con sent forms for an operative procedure, i.e., cholecystectomy.
[2017-09-25] MEDS ORDERED: Acetaminophen 325 MG TAB PO PRN (21:34)
[2017-09-26 05:49] LABS: ALT (SGPT) 21 U/L (8-55); AST (SGOT) 28 U/L (5-34); Albumin 2.8 g/dL (3.5-5.0); Alkaline Phosphatase 180 U/L (40-150); Anion Gap 14 mmol/L (10-20); BUN (Urea Nitrogen) 11 mg/dL (8.9-20.6); Bilirubin, Total 1.4 mg/dL (0.2-1.2); Calc. Creatinine Clearance 245 mL/min (70-130); Calcium 9.1 mg/dL (7.8-10.44); Carbon Dioxide 31 mmol/L (22-29); Chloride 95 mmol/L (98-107); Estimated GFR-MDRD Greater than 90; Glucose 122 mg/dL (70-105); Potassium 3.4 mmol/L (3.5-5.1); Protein, Total 5.8 g/dL (6.0-8.3); Sodium 137 mmol/L (136-145)
[2017-09-26 06:07] LABS: Hemoglobin 13.1 g/dL (14.0-18.0); Mean Corpuscular HGB CONC 33.9 g/dL (32.0-36.0); Mean Corpuscular Hemoglobin 36.7 pg (27.0-31.0); Mean Platelet Volume 7.4 fL (7.4-10.4); Platelet Count 123 thou/uL (130-400); RBC Distribution Width 11.7 % (11.5-14.5); Red Blood Cell (RBC) Count 3.56 mill/uL (4.70-6.10); White Blood Cell (WBC) Count 9.7 thou/uL (4.8-10.8)
[2017-09-26 06:08] LABS: Band 3 % (5-11); Eosinophils 2 % (0-10); Lymphocytes 10 % (21-51); MDiff Complete? YES; Monocytes 16 % (0-10); Neutrophil 69 % (42-75)
[2017-09-26] MEDS: Levothyroxine Sodium 25 MCG TAB PO SCH (06:29)
[2017-09-26] MEDS: Levothyroxine Sodium 112 MCG TAB PO SCH (06:29)
[2017-09-26] MEDS: Meropenem 1 GM in Sterile Water 20 ML SLOW IVP SCH (06:29)
[2017-09-26] MEDS: clonazePAM 0.5 MG TAB PO SCH (07:37)
[2017-09-26] MEDS: clonazePAM 1 MG TAB PO SCH ×2 (07:37→21:28)
[2017-09-26] MEDS: Haloperidol 1 MG TAB PO SCH ×2 (07:38→16:09)
[2017-09-26] MEDS: Amantadine HCl 100 mg Capsule PO SCH ×2 (07:38→21:29)
[2017-09-26] MEDS: Benztropine 1 MG TAB PO SCH ×3 (07:38→21:24)
[2017-09-26] MEDS: Terbinafine 1% 30 GM TUBE TOP SCH (07:39)
[2017-09-26] MEDS: Terbinafine 250 MG TAB PO SCH (07:39)
[2017-09-26] MEDS: OXcarbazepine 300 MG TAB PO SCH ×4 (07:39→21:30)
[2017-09-26] MEDS: Famotidine/PF 20 mg/2ml Vial SLOW IVP SCH (07:44)
[2017-09-26] MEDS: Pantoprazole 40 MG VIAL IVP SCH (07:44)
[2017-09-26] MEDS ORDERED: Lidocaine 1% w/Epinephrine 1:200K 30 ML VIAL ONE (08:50)
[2017-09-26] MEDS ORDERED: Iothalamate Meglumine 60% 50 ML VIAL FS ONE (08:50)
[2017-09-26] MEDS ORDERED: Bupivacaine 0.5% 10 ML VIAL ONE ×2 (08:50→10:22)
[2017-09-26] MEDS ORDERED: Lidocaine 0.5%/Epinephrine 1:200,000 50 ml Vial ONE (08:50)
[2017-09-26] MEDS ORDERED: Fentanyl 100 MCG/2 ML VIAL ONE ×2 (08:58→11:28)
--- NOTE | 2017-09-26 09:18 | PDOC.PN ---
- Subjective Encounter Start Date: 09/26/17 Encounter Start Time: 09:17 Subjective: Seen and examined feeling better - Objective Resuscitation Status: Resuscitation Status FULL:Full Resuscitation Vital Signs & Weight: Vital Signs (12 hours) Temp Pulse Resp BP Pulse Ox 09/26/17 08:37 155/94 H 92 L 09/26/17 07:53 98.3 F 75 20 170/95 H 90 L 09/26/17 07:46 74 22 H 94 L 09/26/17 04:00 98.3 F 75 18 128/84 94 L 09/26/17 00:00 97.7 F 86 18 135/82 91 L Weight Weight 226 lb 14.4 oz I&O: 09/25/17 09/26/17 09/27/17 06:59 06:59 06:59 Intake Total 4470 4257 Output Total 2090 4175 Balance 2380 82 Result Diagrams: 09/26/17 05:02 09/26/17 05:02 Phys Exam - Physical Examination Constitutional: NAD HEENT: PERRLA, moist MMs, sclera anicteric, TM's clear Neck: no nodes, no JVD, supple, full ROM Respiratory: no wheezing, no rales, no rhonchi, clear to auscultation bilateral Cardiovascular: RRR, no significant murmur, no rub Gastrointestinal: soft, non-tender, no distention, positive bowel sounds Musculoskeletal: no edema, pulses present Dx/Plan (1) Pancreatitis Code(s): K85.90 - ACUTE PANCREATITIS WITHOUT NECROSIS OR INFECTION, UNSP Status: Acute (2) Hyperkalemia Code(s): E87.5 - HYPERKALEMIA Status: Acute (3) Metabolic acidemia Code(s): E87.2 - ACIDOSIS Status: Acute (4) Mental retardation Code(s): F79 - UNSPECIFIED INTELLECTUAL DISABILITIES Status: Acute (5) Post traumatic stress disorder Code(s): F43.10 - POST-TRAUMATIC STRESS DISORDER, UNSPECIFIED Status: Acute (6) Hypothyroid Code(s): E03.9 - HYPOTHYROIDISM, UNSPECIFIED Status: Acute (7) ARF (acute renal failure) Status: Acute (8) Cholelithiasis Code(s): K80.20 - CALCULUS OF GALLBLADDER W/O CHOLECYSTITIS W/O OBSTRUCTION Status: Acute (9) Cholecystitis Code(s): K81.9 - CHOLECYSTITIS, UNSPECIFIED Status: Acute (10) Pneumonia Code(s): J18.9 - PNEUMONIA, UNSPECIFIED ORGANISM Status: Acute (11) UTI (urinary tract infection) Status: Acute - Plan continue antibiotics, PT/OT, director of social work, respiratory therapy D/c Bicarb gtt -: Awaiting consent prior to cholecystectomy * .
[2017-09-26] MEDS ORDERED: Dextrose 5 % And 0.9 % NaCl 1,000 ML IV SCH (09:30)
[2017-09-26] MEDS: Sodium Bicarbonate 150 MEQ in Dextrose 5% in Water 1,000 ML IV SCH (09:56)
[2017-09-26] MEDS: Ziprasidone 20 MG CAP PO SCH ×4 (11:14→21:24)
[2017-09-26] MEDS ORDERED: Meperidine HCl/PF 25 MG/ML VIAL SLOW IVP PRN (11:20)
[2017-09-26] MEDS ORDERED: Promethazine HCl 25 MG/ML VIAL SLOW IVP PRN (11:20)
[2017-09-26] MEDS ORDERED: Ondansetron HCl/PF 4 MG/2 ML Vial IVP PRN (11:20)
[2017-09-26] MEDS ORDERED: Promethazine HCl 25 MG/ML VIAL IM PRN (11:20)
--- NOTE | 2017-09-26 11:27 | RAD ---
INTRAOPERATIVE CHOLANGIOGRAM FLUOROSCOPY: HISTORY: Cholecystitis. FINDINGS: Intraoperative fluoroscopy was provided for intraoperative cholangiogram. Single spot fluoroscopic i mage shows the nondilated common duct to be opacified without filling defect visible. Contrast has p assed into the duodenum. Fluoro time=5 seconds. POS: [facility]
[2017-09-26] MEDS ORDERED: HYDROmorphone 0.5 MG/0.5 ML SYRINGE ONE (11:43)
--- NOTE | 2017-09-26 11:54 | OP ---
DATE OF PROCEDURE: 09/26/2017 PREOPERATIVE DIAGNOSIS: Gallstone pancreatitis. POSTOPERATIVE DIAGNOSIS: Gallstone pancreatitis. PROCEDURE: Laparoscopic cholecystectomy with intraoperative cholangiogram. SURGEON: Dr. Jay. ANESTHESIA: General. ESTIMATED BLOOD LOSS: Minimal. COMPLICATIONS: None. SPECIMEN: Gallbladder. FINDINGS: Normal cholangiogram. TECHNIQUE: The patient was taken to the operating room and placed supine on the table. After genera l anesthetic was obtained, the abdomen was prepped and draped in a sterile fashion. Straight incisio n made above the umbilicus. Cautery was used to dissect down to and score the fascia. Abdominal cav ity was entered bluntly using a Patti clamp. Holding stitch of PDS was placed on each side of the fa scia. Retana trocar was placed. High-flow pneumoperitoneum was obtained. Upper midline 5-mm port a nd 2 right upper quadrant 5-mm ports were placed under direct visualization. The gallbladder was ret racted from the gallbladder fossa. Peritoneum was opened anteriorly and posteriorly. The critical v iew triangle was seen showing only the cystic duct and cystic artery branch medial to lateral with no other branch structures. A clip was placed high on the cystic duct. A small ductotomy was made jus t proximal to that. A cholangiogram catheter was brought in through a separate stab incision and cindy laisha in the cystic duct and a cholangiogram was performed, which shows good contrast flow into the duo denum, right and left hepatic duct system without obstruction. Hepatic cholangiocatheter was removed and 2 clips were placed proximally and the cystic duct was cut using laparoscopic scissors. Cystic artery was taken using 2 clips proximally, 1 clip distally, and cut using laparoscopic scissors. Cau ric was used to dissect the gallbladder fossa. The gallbladder was placed in an Endocatch bag and b rought it through the Retana. The right upper quadrant was irrigated using sterile solution. All po rt sites are infiltrated using local anesthetic. All ports were removed under camera visualization. Pneumoperitoneum was let down. PDS was used to close the fascial defect above the umbilicus. All i ncisions were irrigated and closed using 4-0 Monocryl and Dermabond. The patient went to recovery in stable condition. All instrument counts, needle counts, and lap counts were correct.
[2017-09-26] MEDS: Ondansetron HCl/PF 4 MG/2 ML Vial IVP PRN (13:54)
[2017-09-26] MEDS ORDERED: Ondansetron HCl/PF 4 MG/2 ML Vial ONE (14:23)
[2017-09-26] MEDS ORDERED: Lidocaine 1% PF 5 ML VIAL ONE (14:23)
[2017-09-26] MEDS ORDERED: PROPOFOL 200 MG/20 ML VIAL ONE (14:23)
[2017-09-26] MEDS ORDERED: Glycopyrrolate 0.2 MG/ML 5 ML SYRINGE ONE (14:23)
[2017-09-26] MEDS ORDERED: Ondansetron ODT 4 MG TAB SL PRN (15:11)
[2017-09-26] MEDS: HYDROcodone/Acetaminophen 10/325 mg Tablet PO PRN (16:15)
[2017-09-26] MEDS: Haloperidol 5 MG TAB PO SCH (16:34)
--- NOTE | 2017-09-26 18:00 | PRG ---
DATE OF SERVICE: 09/26/2017 SUBJECTIVE: Justen Sommers has no complaints. He does not want to cooperate with walking. OBJECTIVE: LUNGS: Clear. HEART: Regular rhythm. ABDOMEN: Soft. IMPRESSION: Pancreatitis brought on by choledocholithiasis. PLAN: Per General Surgery once consent forms are all signed and everything is lined up. There are n o acute issues at this time.
[2017-09-26] MEDS: Melatonin 3 MG TAB PO SCH (21:24)
[2017-09-27] MEDS: HYDROcodone/Acetaminophen 10/325 mg Tablet PO PRN (01:25)
[2017-09-27] MEDS: Ziprasidone 20 MG CAP PO SCH ×2 (01:28→13:47)
[2017-09-27] MEDS: Melatonin 3 MG TAB PO SCH (01:28)
[2017-09-27] MEDS: Levothyroxine Sodium 25 MCG TAB PO SCH (05:05)
[2017-09-27] MEDS: Levothyroxine Sodium 112 MCG TAB PO SCH (05:05)
[2017-09-27] MEDS: OXcarbazepine 300 MG TAB PO SCH ×2 (09:42→14:42)
[2017-09-27] MEDS: clonazePAM 1 MG TAB PO SCH (09:43)
[2017-09-27] MEDS: Amantadine HCl 100 mg Capsule PO SCH (09:43)
[2017-09-27] MEDS: Terbinafine 250 MG TAB PO SCH (09:43)
[2017-09-27] MEDS: Benztropine 1 MG TAB PO SCH ×2 (09:43→14:42)
[2017-09-27] MEDS: clonazePAM 0.5 MG TAB PO SCH (09:44)
[2017-09-27] MEDS: Terbinafine 1% 30 GM TUBE TOP SCH (09:47)
[2017-09-27] MEDS: Haloperidol 1 MG TAB PO SCH (10:01)
--- NOTE | 2017-09-27 10:56 | PDOC.GSPN ---
Surgery Progress Note: Subj - Subjective Patient reports: no new complaints, tolerating a regular diet Surgery Progress Note: Obj - Vital signs Vital signs: Vital Signs - Most Recent Temp Pulse Resp BP Pulse Ox 98.8 F 93 20 137/84 91 L 09/26/17 20:00 09/26/17 20:00 09/26/17 20:00 09/26/17 20:00 09/26/17 20:00 - Physical Exam General: no distress Wound: healing well Surgery Progress Note: Results - Labs Result Diagrams: 09/26/17 05:02 09/26/17 05:02 Surgery Progress Note: A/P - Problem (1) Gallstone pancreatitis Current Visit: Yes Code(s): K85.10 - BILIARY ACUTE PANCREATITIS WITHOUT NECROSIS OR INFECTION Status: Acute Assessment and Plan: pod 1 lap armando doing well. DC home
[2017-09-27 14:50] VITALS: BP 154/93; TEMP 99.2
--- NOTE | 2017-09-27 15:19 | DIS ---
DATE OF ADMISSION: 09/22/2017 DATE OF DISCHARGE: 09/27/2017 PRIMARY CARE PROVIDER: Out of town. DISCHARGE DISPOSITION: Discharged back to the [facility]. PENDING AT THE TIME OF DISCHARGE: Nothing. ALLERGIES: THORAZINE, LORAZEPAM, RISPERDAL. CODE STATUS: FULL. DISCHARGE DIAGNOSES: 1. Gallstone pancreatitis. 2. Cholelithiasis. 3. Acute renal failure, resolved. 4. Hyperkalemia, resolved. 5. Hypothyroidism. 6. Mental retardation. 7. Post-traumatic stress disorder. 8. Hypertension. DISCHARGE MEDICATIONS: In addition to his usual medications, hydrocodone 10/325 one every 6 hours fo r pain, Zofran oral dissolving tablet 4 mg every 6 hours p.r.n. He takes Geodon 20 mg at bedtime, Co gentin 1 mg t.i.d., Haldol 4 mg in the morning and 5 in the evening, Lamisil 250 daily, Klonopin 1 mg in the morning and 2 mg in the evening, Depakote 1000 mg in the morning and 1500 in the evening, Tri leptal 300 mg at bedtime, amantadine 100 mg a day, Lotensin 10 mg a day, benazepril 10 mg a day, levo thyroxine 137 mcg a day, Trileptal 600 mg 3 times a day, and polyethylene glycol. HOSPITAL COURSE: The patient admitted to [facility] through [facility]. The patient was transferred for acute renal failure, history of mental retardation, multiple psychiatric issues including bipolar, PTSD, on multiple psychotropic medicines, history of seizure di sorder, hypothyroidism, chronic constipation, hypertension, mental retardation, PTSD, bipolar, nicoti ne dependence. On arrival, his sodium was 132, potassium 6.7, BUN 50, creatinine 2.13. White cell count was elevate d at 28.6. At an outside facility, his lipase was 8295. CT showed enlargement of the pancreas. He was made n.p.o., started on pain medicines. An abdominal ultrasound revealed cholelithiasis with possible cholecystitis. Consultation was obtained with Dr. Delon Jay, Dr. Olivier Hall, Pulmonology; Dr. Filiberto Mohamud, Gastroe nterology. He was made n.p.o., continued on IV fluids. His sodium came up to normal 137, potassium came down to normal at 4.3. Liver function tests were actually fairly remarkably normal during his h ospital stay. Initial white count was 20.6, which has come down to 10.5. His creatinine has come do wn to normal. The patient underwent a laparoscopic cholecystectomy with intraoperative cholangiogram by Dr. Jay on 09/26/2017. His vital signs are normal. He is walking around without pain, desirous of going ho mi. He is being discharged back to the [facility]. He will need wound care. Prescriptions have been written for hydrocodone and Zofran oral dissolving tablets. He will need follow up by a ph ysician there and wound care by a physician there.
--- NOTE | 2017-09-27 15:42 | PRG ---
DATE OF SERVICE: 09/27/2017 SUBJECTIVE: Mr. Sommers is doing much better status post cholecystectomy. OBJECTIVE: VITAL SIGNS: Sats are 91% on room air, respirations 20, temperature 98, blood pressure 130/85. He w ants to go home. CHEST: Decreased breath sounds without any wheezing. CARDIAC: Normal S1, S2. No gallops. ABDOMEN: Soft. No masses. LABORATORY DATA: White count 9000, hemoglobin and hematocrit 10 and 38, platelet count 28. His chem istry profile shows normal BUN and creatinine. IMPRESSION: 1. Pancreatitis secondary to cholecystitis, status post surgery. 2. Renal failure, resolved. 3. Mental retardation. He is pulmonary chen stable enough to go back to the snf when okay with General Surgery.
--- NOTE | 2017-10-07 10:06 | PQF ---
ANITA LOPES [employer]OSPERITY U MD [id number] [facility]- B05 [id number] CLINICAL DOCUMENTATION IMPROVEMENT CLARIFICATION FORM: ICD-10 Updated PLEASE DO AN ADDENDUM TO THE PROGRESS NOTE WITH ANY DOCUMENTATION UPDATES OR ADDITIONS AND CARRY THROUGH TO DC SUMMARY. THANK YOU. DATE: 09-24-17 ATTN: DR. INDRA CHASE Please exercise your independent, professional judgment in responding to the clarification form. Clinical indicators are provided on the bottom of this form for your review Please check appropriate box(es): [ ] Sepsis [ ] SIRS due to non-infectious process (please specify etiology) [ ] with organ dysfunction [ ] without organ dysfunction [ ] Severe sepsis with acute organ dysfunction of: (Examples: respiratory failure, encephalopathy, acute kidney failure, other) [ ] Other diagnosis [ ] Unable to determine In addition, please specify: Present on Admission (POA): [ ] Yes [ ] No [ ] Unable to determine For continuity of documentation, please document condition throughout progress notes and discharge summary. Thank You. CLINICAL INDICATORS - SIGNS / SYMPTOMS / LABS ER: XFER SEPSIS WBC: 2-14-18: 20.6 2-15-18: 19.4 2-16-18: 11.5 BANDS: 2-14-18: 11 2-15-18: 34 2-16-18: 20 TEMP: 2-14-18: 101 2-15-18: 101, 100.8, 100.6, 100.5, 2-16-18: 101.4, 99.8 PULSE: ( ER) 117, 118, 123, 124, RR: (ER) 28, 36, 36, 34, 43, 42, 40, 35, 25 H&P: INITIAL LACTIC ACID 3.4, NOW DOWN TO 2.1, ACUTE PANCREATITIS CONSULT NOTE DR. BRADLEY : ACUTE ABDOMEN AND POSSIBLY PANCREATITIS SECONDARY TO GALLBLADDER DISEASE RISK FACTORS: CONSULT NOTE DR. BRADLEY : ACUTE ABDOMEN AND POSSIBLY PANCREATITIS SECONDARY TO GALLBLADDER DISEASE TREATMENTS: (ER) IVF (MAR) MEROPENEM DAILY LABS THANK YOU, JONATAN (This form is maintained as a part of the permanent medical record) 2015 [employer], [employer]. All Rights Reserved [email or web address] Office: [phone] [email or web address]
== END 2017-09-27 15:27 | disposition short-term general hospital (02) | DRG 417 ==
LOC: ERS 15:42 → IMCU/EMU 17:43 → T4-B 09-25 17:51
PROVIDERS: ADMIT Internal Medicine Infectious Disease; ATTEND Internal Medicine Infectious Disease
PROC: 0FT44ZZ Resection of Gallbladder, Percutaneous Endoscopic Approach (ICD-10-PCS; principal; 2017-09-26)
PROC: BF101ZZ Fluoroscopy of Bile Ducts using Low Osmolar Contrast (ICD-10-PCS; 2017-09-26)
DX: K80.10 Calculus of gallbladder with chronic cholecystitis without obstruction (principal); K85.10 Biliary acute pancreatitis without necrosis or infection; N17.9 Acute kidney failure, unspecified; E87.5 Hyperkalemia; K56.7 Ileus, unspecified; E87.2 Acidosis; E03.9 Hypothyroidism, unspecified; I10 Essential (primary) hypertension; K59.09 Other constipation; G40.909 Epilepsy, unspecified, not intractable, without status epilepticus; F43.10 Post-traumatic stress disorder, unspecified; F31.9 Bipolar disorder, unspecified; F60.2 Antisocial personality disorder; F70 Mild intellectual disabilities; F60.0 Paranoid personality disorder; F17.210 Nicotine dependence, cigarettes, uncomplicated; Z88.8 Allergy status to other drugs, medicaments and biological substances; Z79.899 Other long term (current) drug therapy
CPT/HCPCS: 36415; 36416; 47532; 71045; 74019; 76705; 80053; 81003; 81015; 82330; 82553; 82803; 83605; 83690; 83735; 84478; 84484; 85025; 87086; 88304; 93005; 94640; 96361; 96374; 96375; A4216; C9113; J1170; J1815; J2001; J2185; J2405; J2704; J3010; J3490; J7070; J7611; J7620; Q9961; S0028

== ENCOUNTER 2017-09-28 05:55 | Observation (INO) | payer MEDICARE, MEDICAID ==
[2017-09-28] MEDS ORDERED: Haloperidol 1 MG TAB PO SCH (12:45)
[2017-09-28] MEDS ORDERED: OXcarbazepine 300 MG TAB PO SCH (12:45)
[2017-09-28] MEDS ORDERED: Levothyroxine Sodium 25 MCG TAB PO SCH (12:45)
[2017-09-28] MEDS ORDERED: clonazePAM 1 MG TAB PO SCH (12:45)
[2017-09-28] MEDS ORDERED: Levothyroxine Sodium 112 MCG TAB PO SCH (12:45)
[2017-09-28] MEDS ORDERED: Benztropine 1 MG TAB PO SCH (12:45)
[2017-09-28] MEDS ORDERED: Docusate 100 MG CAP PO SCH (12:45)
[2017-09-28] MEDS ORDERED: clonazePAM 1 MG TAB ONE (13:23)
[2017-09-28 15:22] LABS: Hemoglobin 13.2 g/dL (14.0-18.0); Mean Corpuscular HGB CONC 33.5 g/dL (32.0-36.0); Mean Corpuscular Hemoglobin 35.9 pg (27.0-31.0); Mean Platelet Volume 7.1 fL (7.4-10.4); Platelet Count 216 thou/uL (130-400); RBC Distribution Width 11.9 % (11.5-14.5); Red Blood Cell (RBC) Count 3.68 mill/uL (4.70-6.10); White Blood Cell (WBC) Count 12.1 thou/uL (4.8-10.8)
[2017-09-28 15:41] LABS: ALT (SGPT) 33 U/L (8-55); AST (SGOT) 37 U/L (5-34); Albumin 3.1 g/dL (3.5-5.0); Alkaline Phosphatase 272 U/L (40-150); Anion Gap 12 mmol/L (10-20); BUN (Urea Nitrogen) 12 mg/dL (8.9-20.6); Bilirubin, Total 0.9 mg/dL (0.2-1.2); Calc. Creatinine Clearance 0 mL/min (70-130); Calcium 9.2 mg/dL (7.8-10.44); Carbon Dioxide 27 mmol/L (22-29); Chloride 97 mmol/L (98-107); Estimated GFR-MDRD Greater than 90; Globulin 3.5 g/dL (2.4-3.5); Glucose 110 mg/dL (70-105); Lipase 257 U/L (8-78); Potassium 3.6 mmol/L (3.5-5.1); Protein, Total 6.6 g/dL (6.0-8.3); Sodium 132 mmol/L (136-145)
[2017-09-28 15:53] LABS: Band 6 % (5-11); Lymphocytes 3 % (21-51); MDiff Complete? YES; Monocytes 19 % (0-10); Neutrophil 72 % (42-75); PLT Morphology Comment Appears Adequate
[2017-09-28] MEDS ORDERED: Ondansetron ODT 4 MG TAB SL PRN (17:11)
[2017-09-28] MEDS ORDERED: Acetaminophen 325 MG TAB PO PRN (17:11)
[2017-09-28] MEDS ORDERED: Ondansetron HCl/PF 4 MG/2 ML Vial IVP PRN ×2 (17:11→18:02)
[2017-09-28 17:26] VITALS: BMI 31.6
[2017-09-28] MEDS ORDERED: Milk Of Magnesia 30 ML UDCUP PO PRN (18:02)
[2017-09-28] MEDS ORDERED: Ondansetron ODT 4 MG TAB PO PRN (18:02)
[2017-09-28] MEDS ORDERED: Mag-Al 1200 mg/1200 mg/30 ML UDCUP PO PRN (18:02)
[2017-09-28] MEDS ORDERED: HYDROcodone/Acetaminophen 10/325 mg Tablet PO PRN (18:02)
[2017-09-28] MEDS ORDERED: hydrALAZINE 20 MG/ML VIAL SLOW IVP PRN (18:02)
[2017-09-28] MEDS ORDERED: Non-Formulary Item 1 EACH (Acetaminophen [Acetaminophen] 650 MG) PO PRN (18:02)
--- NOTE | 2017-09-28 20:22 | HP ---
The patient is a resident of [facility]. CHIEFT COMPLAINT: Actually, the patient was sent over from the [facility] because they were concerned that he was unstable. HISTORY OF PRESENT ILLNESS: Mr. Sommers is a pleasant 26-year-old gentleman that has a history of m ild mental retardation as well as other psychiatric illnesses. He was recently seen in our hospital for gallstone pancreatitis. He was at that time complaining of abdominal pain and nausea and vomitin g and unable to keep anything down. He was found to have a lipase of 8200 and also was in acute vera l failure. He was admitted and underwent a laparoscopic cholecystectomy with an intraoperative chola ngiogram. He had an uneventful postoperative course, and the patient was discharged back to the [facility]. His renal function had improved and his discharge creatinine was 0.87 and his lipase at the time of discharge had gone down to 296. Apparently, he was in the [facility] and they were concerned because he admit he had mentioned some abdominal pain and apparently they checked an O2 sa turation and it was slightly hypoxic. He was then sent to a local emergency room and then transferre d to our facility. However, once he arrived to our facility, it appeared as if he was relatively sta ble. He was seen by the general surgeon who performed the operation, Dr. Jay. He at that time w as complaining of no abdominal pain when he is in our facility. His abdomen is benign and his lab wo rk was essentially normal and what is to be expected following a recent laparoscopic cholecystectomy; however, the [facility] refused to take the patient back, and after several hours of discuss ion between administration of the [facility] and physicians in are location, the agreement wa s to place the patient in observation, reexamine him in the morning as well as repeat some lab work, and if he remains stable, then he will be transferred back to the [facility]. Currently, the patient was coming up downstairs. He has been walking around. He has absolutely no complaints. He is actually wanting to go back to the [facility]. He denies any abdominal pain. He denies any nausea. He denies any vomiting. He denies any chest pain, no shortness of breath, etc. REVIEW OF SYSTEMS: CONSTITUTIONAL: Again, no fevers, chills, no night sweats, no weight loss. HEENT: No headaches, no dizziness, no visual changes, no sore throat, rhinorrhea, neck pain, no hmoar opathy. PULMONARY: No hemoptysis, no cough, no wheezing. CARDIOVASCULAR: He denies any chest pain, no shortness of breath, no PND, no orthopnea. GASTROINTESTINAL: He denies abdominal pain, no nausea, no vomiting, no change in bowels. He says he has passed some gas, but has not had a bowel movement. GENITOURINARY: No urinary frequency, hematuria, no hesitancy. NEUROLOGIC: No focal weakness, numbness, no seizures. PSYCHIATRIC: No symptoms of anxiety or depression. SKIN AND INTEGUMENT: No skin changes. No rash. PAST MEDICAL HISTORY: Taken from his previous history and physical, which was done by Dr. Bermudez on 09/22/2017 and includes hypertension, constipation, seizure disorder, hypothyroidism, hidradenitis, m ental retardation, Parkinson disease or possible Parkinson's, PTSD, bipolar disorder, paranoid person ality disorder, antisocial personality disorder. PAST SURGICAL HISTORY: On his right index finger, he had a nerve transposition performed and a recen t laparoscopic cholecystectomy with intraoperative cholangiogram. ALLERGIES: CHLORPROMAZINE, LORAZEPAM and RISPERIDONE. FAMILY HISTORY: Unknown. SOCIAL HISTORY: He smokes half a pack a day. No drug use or alcohol use. CURRENT MEDICATIONS: Include Geodon 20 mg at bedtime, zinc 50 mg t.i.d., Lamisil 250 mg daily, Brock ax 17 g daily, Trileptal 600 mg t.i.d. and 30 mg at bedtime, Zofran 4 mg p.o. as needed, melatonin 5 mg at bedtime, loratadine 10 mg daily, levothyroxine 135 mcg daily, [place] 10/325 q.4 hours as needed, haloperidol 5 mg q.a.m. and 5 mg q.p.m., Depakote 1000 mg in the morning and 15 mg at bedtime, clona zepam 1 mg in the a.m., 2 mg at bedtime, Cogentin 1 mg t.i.d., benazepril 10 mg daily, amantadine 100 mg twice a day and Tylenol 650 mg q.6 hours as needed. PHYSICAL EXAMINATION: GENERAL: He is alert and oriented. He appears to be in no acute distress. HEENT: Pupils are equal, round, and reactive. Extraocular muscles are intact. His sclerae are anic teric. Throat no erythema, no exudates. NECK: No adenopathy, no bruits. LUNGS: Clear. No wheezing, no rales. CARDIOVASCULAR: He had a normal S1, S2. No S3 or S4. No murmurs, clicks or rubs. ABDOMEN: Soft, it is nontender, nondistended. Positive for bowel sounds. No rebound or guarding. EXTREMITIES: There is no clubbing, cyanosis, no edema. NEUROLOGICALLY: The exam is nonfocal. LABORATORY RESULTS: Sodium 132, potassium 3.6, chloride is 97, CO2 is 27, BUN of 12, creatinine 0.68 , glucose is 110, AST is 37, ALT is 33, alkaline phosphatase 272, albumin 3.1. White blood cell coun t 12.1, hemoglobin 13.2, hematocrit is 39.5, platelet count is 216. ASSESSMENT AND PLAN: This is a 26-year-old gentleman who had a recent laparoscopic cholecystectomy. He appears to be experiencing an appropriate postoperative course. He will be monitored overnight. We will restart his usual home medications. We will encourage oral intake as well as fluid intake i f he has had difficulty achieving an IV access. Recheck his liver function tests as well as his CBC in the a.m., and if stable, can be transferred back to the [facility].
[2017-09-28] MEDS ORDERED: OXcarbazepine 600 MG TAB PO SCH (21:00)
[2017-09-28] MEDS: OXcarbazepine 300 MG TAB PO SCH ×2 (21:06→21:07)
[2017-09-28] MEDS: clonazePAM 1 MG TAB PO SCH (21:07)
[2017-09-28] MEDS: Docusate 100 MG CAP PO SCH (21:08)
[2017-09-28] MEDS: Amantadine HCl 100 mg Capsule PO SCH (21:08)
[2017-09-28] MEDS: Famotidine 20 MG TAB PO SCH (21:08)
[2017-09-28] MEDS: Melatonin 3 MG TAB PO SCH (21:09)
[2017-09-28] MEDS: Zinc Sulfate 220 MG CAP PO SCH (21:09)
[2017-09-28] MEDS: Ziprasidone 20 MG CAP PO SCH (21:09)
[2017-09-28] MEDS: Benztropine 1 MG TAB PO SCH (21:09)
[2017-09-29] MEDS: Acetaminophen 325 MG TAB PO PRN ×2 (00:13→09:01)
[2017-09-29 04:42] LABS: #Eosinphils 0.2 thou/uL (0.0-0.7); #Lymphocytes 1.4 thou/uL (1.20-3.40); #Monocytes 1.2 thou/uL (0.11-0.59); #Neutrophils 8.5 thou/uL (1.40-6.50); %Basophils 0.2 % (0.0-1.0); %Eosinophils 1.6 % (0.0-10.0); %Lymphocytes 12.5 % (21.0-51.0); %Monocytes 10.3 % (0.0-10.0); %Neutrophils 75.4 % (42.0-75.0); Hemoglobin 11.6 g/dL (14.0-18.0); Mean Corpuscular HGB CONC 34.3 g/dL (32.0-36.0); Mean Corpuscular Hemoglobin 36.5 pg (27.0-31.0); Mean Platelet Volume 7.2 fL (7.4-10.4); Platelet Count 197 thou/uL (130-400); RBC Distribution Width 11.9 % (11.5-14.5); Red Blood Cell (RBC) Count 3.17 mill/uL (4.70-6.10); White Blood Cell (WBC) Count 11.2 thou/uL (4.8-10.8)
[2017-09-29 04:52] LABS: ALT (SGPT) 23 U/L (8-55); AST (SGOT) 25 U/L (5-34); Albumin 2.7 g/dL (3.5-5.0); Alkaline Phosphatase 195 U/L (40-150); Bilirubin, Direct 0.4 mg/dL (0.1-0.3); Bilirubin, Total 0.6 mg/dL (0.2-1.2); Lipase 282 U/L (8-78); Protein, Total 5.6 g/dL (6.0-8.3)
[2017-09-29] MEDS: Levothyroxine Sodium 25 MCG TAB PO SCH (06:05)
[2017-09-29] MEDS: Levothyroxine Sodium 112 MCG TAB PO SCH (06:05)
[2017-09-29] MEDS: OXcarbazepine 300 MG TAB PO SCH ×4 (08:47→20:40)
[2017-09-29] MEDS: Benztropine 1 MG TAB PO SCH ×3 (08:47→20:38)
[2017-09-29] MEDS: Famotidine 20 MG TAB PO SCH ×2 (08:48→20:39)
[2017-09-29] MEDS: Amantadine HCl 100 mg Capsule PO SCH ×2 (08:48→20:37)
[2017-09-29] MEDS: Docusate 100 MG CAP PO SCH ×2 (08:49→20:38)
[2017-09-29] MEDS: Senokot S 8.6-50 MG TAB PO SCH ×2 (08:49→16:00)
[2017-09-29] MEDS: clonazePAM 1 MG TAB PO SCH ×2 (08:49→20:38)
[2017-09-29] MEDS: Zinc Sulfate 220 MG CAP PO SCH ×3 (08:50→20:40)
[2017-09-29] MEDS: Loratadine 10 MG TAB PO SCH (08:50)
[2017-09-29] MEDS: Polyethylene Glycol 3350 17 GM Packet PO SCH (08:51)
[2017-09-29] MEDS: Haloperidol 1 MG TAB PO SCH (08:51)
[2017-09-29] MEDS: Clotrimazole 1% Cream 15 GM TUBE TOP SCH (08:52)
[2017-09-29] MEDS: Enoxaparin Sodium 40 MG/0.4 ML SYRINGE SC SCH (08:55)
[2017-09-29] MEDS ORDERED: Calcium Carbonate + Vit D 250 MG TAB PO SCH (09:00)
[2017-09-29] MEDS ORDERED: ISOVUE-370 76%-LOCM 1 ML ONE (11:42)
[2017-09-29] MEDS: Ziprasidone 20 MG CAP PO SCH ×2 (12:10→20:40)
--- NOTE | 2017-09-29 12:30 | RAD ---
PORTABLE CHEST ONE VIEW: 09/29/2017 11:07 a.m. HISTORY: Infiltrates. COMPARISON: 09/24/2017 FINDINGS: The heart size is borderline. There are stable bibasilar infiltrates. No pneumothoraces or large ef fusions are seen. POS: [facility]
--- NOTE | 2017-09-29 15:17 | PDOC.PN ---
- Subjective Encounter Start Date: 09/29/17 Encounter Start Time: 15:15 Subjective: feels well.wants to go back to [employer] -: walking in hallways and going down to smoke - Objective Resuscitation Status: Resuscitation Status FULL:Full Resuscitation MAR Reviewed: Yes Vital Signs & Weight: Vital Signs (12 hours) Temp Pulse Resp BP BP Pulse Ox 09/29/17 13:06 98.9 F 78 16 139/87 92 L 09/29/17 11:54 98.1 F 74 18 142/94 H 94 L 09/29/17 08:49 150/89 H 09/29/17 08:00 98.3 F 74 18 09/29/17 07:25 98.3 F 74 18 150/89 H 94 L Weight Weight 220 lb 0.341 oz Result Diagrams: 09/29/17 04:14 09/28/17 14:57 Additional Labs: Laboratory Tests 09/22/17 09/23/17 09/24/17 16:15 05:04 04:51 WBC Creatinine 2.13 H 1.40 H 0.87 Total Bilirubin AST 52 H 40 H 22 ALT 13 12 Alkaline Phosphatase 84 77 85 Lipase 296 H 09/25/17 09/26/17 09/26/17 04:36 05:02 05:02 WBC 9.7 Creatinine 0.67 Total Bilirubin 1.4 H AST 28 ALT 21 Alkaline Phosphatase 180 H Lipase 116 H 09/28/17 09/28/17 09/29/17 14:57 14:57 04:14 WBC 12.1 H 11.2 H Creatinine 0.68 Total Bilirubin 0.9 AST 37 H ALT 33 Alkaline Phosphatase 272 H Lipase 257 H 09/29/17 04:14 WBC Creatinine Total Bilirubin 0.6 AST 25 ALT 23 Alkaline Phosphatase 195 H Lipase 282 H Phys Exam - Physical Examination Constitutional: NAD HEENT: PERRLA, moist MMs, sclera anicteric, TM's clear, oral pharynx no lesions , 2+ tonsils Neck: no nodes, no JVD, supple, full ROM Respiratory: no wheezing, no rales, no rhonchi, clear to auscultation bilateral Cardiovascular: RRR, no significant murmur Gastrointestinal: soft, non-tender, no distention, positive bowel sounds Musculoskeletal: no edema, pulses present Neurological: non-focal, normal sensation, moves all 4 limbs Psychiatric: normal affect, A&O x 3 Dx/Plan (1) Transaminitis Code(s): R74.0 - NONSPEC ELEV OF LEVELS OF TRANSAMNS & LACTIC ACID DEHYDRGNSE Status: Acute (2) Abdominal pain Code(s): R10.9 - UNSPECIFIED ABDOMINAL PAIN Status: Acute (3) S/P laparoscopic cholecystectomy Code(s): Z90.49 - ACQUIRED ABSENCE OF OTHER SPECIFIED PARTS OF DIGESTIVE TRACT Status: Acute (4) Hypothyroid Code(s): E03.9 - HYPOTHYROIDISM, UNSPECIFIED Status: Acute (5) Mental retardation Code(s): F79 - UNSPECIFIED INTELLECTUAL DISABILITIES Status: Acute - Plan PT/OT, DVT proph w/SCDs clinically stable. no s/s to suggest infection -: CXR clear. LFT trending down -: [place] [facility] [place] might have Nec pancreatitis? -: ? ileus per Dr. Holt. -: refused to take pt back. * .WBC trending down. * will get stat CT A/P and consult GS * am labs Review of Systems - Review of Systems Constitutional: negative: fever, chills, sweats, weakness, malaise, other Respiratory: negative: Cough, Dry, Shortness of Breath, Hemoptysis, SOB with Excertion, Pleuritic Pain, Sputum, Wheezing Cardiovascular: negative: chest pain, palpitations, orthopnea, paroxysmal nocturnal dyspnea, edema, light headedness, other Gastrointestinal: negative: Nausea, Vomiting, Abdominal Pain, Diarrhea, Constipation, Melena, Hematochezia, Other Genitourinary: negative: Dysuria, Frequency, Incontinence, Hematuria, Retention , Other Musculoskeletal: negative: Neck Pain, Shoulder Pain, Arm Pain, Back Pain, Hand Pain, Leg Pain, Foot Pain, Other Neurological: negative: Weakness, Numbness, Incoordination, Change in Speech, Confusion, Seizures, Other - Medications/Allergies Allergies/Adverse Reactions: Allergies Allergy/AdvReac Type Severity Reaction Status Date / Time chlorpromazine Allergy Verified 09/28/17 17:15 [From Thorazine] lorazepam [From Ativan] Allergy Verified 09/28/17 17:15 risperidone [From Risperdal] Allergy Verified 09/28/17 17:15 Medications: Current Medications Acetaminophen (Tylenol) 650 mg PO Q4H PRN PRN Reason: Headache/Fever or Pain Last Admin: 09/29/17 09:01 Dose: 650 mg Hydrocodone Bitart/Acetaminophen ([place] 10/325) 1 tab PO Q4H PRN PRN Reason: Moderate to Severe Pain (4-10) Al Hydroxide/Mg Hydroxide (Maalox) 30 ml PO Q6H PRN PRN Reason: Heartburn or Indigestion Amantadine HCl (Symmetrel) 100 mg PO BID [facility] Last Admin: 09/29/17 08:48 Dose: 100 mg Benazepril HCl (Lotensin) 10 mg PO DAILY [facility] Last Admin: 09/29/17 08:49 Dose: 10 mg Benztropine Mesylate (Cogentin) 1 mg PO TID [facility] Last Admin: 09/29/17 14:44 Dose: 1 mg Calcium/Vitamin D (Oscal + Vit D) 1 mg PO DAILY [facility] Last Admin: 09/29/17 08:50 Dose: 1 mg Clonazepam (Klonopin) 1 mg PO QA-[facility] Last Admin: 09/29/17 08:49 Dose: 1 mg Clonazepam (Klonopin) 2 mg PO [facility] Last Admin: 09/28/17 21:07 Dose: 2 mg Clotrimazole (Lotrimin 1% Cream) 0 gm TOP DAILY [facility] Last Admin: 09/29/17 08:52 Dose: Not Given Divalproex Sodium (Depakote Er) 1,000 mg PO QAM [facility] Last Admin: 09/29/17 08:47 Dose: 1,000 mg Divalproex Sodium (Depakote Er) 1,500 mg PO [facility] Last Admin: 09/28/17 21:08 Dose: 1,500 mg Docusate Sodium (Colace) 200 mg PO BID [facility] Last Admin: 09/29/17 08:49 Dose: 200 mg Enoxaparin Sodium (Lovenox) 40 mg SC 0900 [facility] Last Admin: 09/29/17 08:55 Dose: Not Given Famotidine (Pepcid) 20 mg PO BID [facility] Last Admin: 09/29/17 08:48 Dose: 20 mg Haloperidol (Haldol) 4 mg PO QAM-[facility] Last Admin: 09/29/17 08:51 Dose: 4 mg Haloperidol (Haldol) 5 mg PO QPM-[facility] Haloperidol (Haldol) 2 mg PO QPM-[facility] Hydralazine HCl (Apresoline) 10 mg SLOW IVP Q4H PRN PRN Reason: Systolic BP > 180 Levothyroxine Sodium (Synthroid) 112 mcg PO 0600 [facility] Last Admin: 09/29/17 06:05 Dose: 112 mcg Levothyroxine Sodium (Synthroid) 25 mcg PO 0600 [facility] Last Admin: 09/29/17 06:05 Dose: 25 mcg Loratadine (Claritin) 10 mg PO DAILY [facility] Last Admin: 09/29/17 08:50 Dose: 10 mg Magnesium Hydroxide (Milk Of Magnesium) 30 ml PO DAILYPRN PRN PRN Reason: Constipation Melatonin (Melatonin) 6 mg PO [facility] Last Admin: 09/28/17 21:09 Dose: 6 mg Ondansetron HCl (Zofran Odt) 4 mg PO Q6H PRN PRN Reason: Nausea/Vomiting Ondansetron HCl (Zofran) 4 mg IVP Q6H PRN PRN Reason: Nausea/Vomiting Oxcarbazepine (Trileptal) 300 mg PO [facility] Last Admin: 09/28/17 21:06 Dose: 300 mg Oxcarbazepine (Trileptal) 600 mg PO TID [facility] Last Admin: 09/29/17 14:45 Dose: 600 mg Polyethylene Glycol (Miralax) 17 gm PO DAILY [facility] Last Admin: 09/29/17 08:51 Dose: 17 gm Senna/Docusate Sodium (Senokot S) 1 tab PO BID-[facility] Last Admin: 09/29/17 08:49 Dose: 1 tab Zinc Sulfate (Zinc Sulfate) 220 mg PO TID [facility] Last Admin: 09/29/17 14:45 Dose: 220 mg Ziprasidone (Geodon) 20 mg PO HS [facility] Last Admin: 09/28/17 21:09 Dose: 20 mg Ziprasidone (Geodon) 20 mg PO QPM-[facility] Ziprasidone (Geodon) 40 mg PO 1200 [facility] Last Admin: 09/29/17 12:10 Dose: 40 mg
[2017-09-29] MEDS ORDERED: Haloperidol Lactate 5 MG/ML VIAL IM PRN ×2 (15:19→15:20)
[2017-09-29] MEDS ORDERED: Ziprasidone 20 MG CAP PO SCH (17:00)
[2017-09-29] MEDS ORDERED: Haloperidol 1 MG TAB PO SCH (17:00)
[2017-09-29] MEDS ORDERED: Haloperidol 5 MG TAB PO SCH (17:00)
--- NOTE | 2017-09-29 19:23 | CT ---
CT ABDOMEN AND PELVIS WITH CONTRAST 09/29/17 HISTORY: Concern for necrotizing pancreatitis. COMPARISON: None. FINDINGS: There are large left and moderate right sided pleural effusion. Heart size is mildly enlarged. There is a large area of nonenhancement of the pancreatic body and tail with acute necrotic collectio n. The area of necrosis involves approximately 50% o the pancreatic volume. There is extensive peripa ncreatic fluid. There is gas in the anterior abdominal wall from recent cholecystectomy. The appendix is visualized. There is extensive small periaortic lymph nodes in the retroperitoneum. Both adrenal glands appear un remarkable. The spleen is unremarkable. The liver is unremarkable. Aortic contour is nonaneurysmal. IMPRESSION: Acute necrotizing pancreatitis with necrosis of approximately 50% of the volume of the pancreas invol ving the majority of the pancreatic body and tail. There is also some small volume adjacent peripancr eatic necrosis. There is marked inflammation of the adjacent soft tissues. Peripancreatic extension e xtends along the anterior left pararenal fascia. Code T POS: KEARA
[2017-09-29] MEDS: Melatonin 3 MG TAB PO SCH (20:39)
[2017-09-30 05:18] LABS: #Eosinphils 0.2 thou/uL (0.0-0.7); #Lymphocytes 1.4 thou/uL (1.20-3.40); #Monocytes 0.9 thou/uL (0.11-0.59); #Neutrophils 8.2 thou/uL (1.40-6.50); %Basophils 0.2 % (0.0-1.0); %Eosinophils 1.6 % (0.0-10.0); %Lymphocytes 13.3 % (21.0-51.0); %Monocytes 8.1 % (0.0-10.0); %Neutrophils 76.9 % (42.0-75.0); Hemoglobin 11.9 g/dL (14.0-18.0); Mean Corpuscular HGB CONC 34.4 g/dL (32.0-36.0); Mean Corpuscular Hemoglobin 36.6 pg (27.0-31.0); Mean Platelet Volume 7.3 fL (7.4-10.4); Platelet Count 219 thou/uL (130-400); Red Blood Cell (RBC) Count 3.26 mill/uL (4.70-6.10); White Blood Cell (WBC) Count 10.6 thou/uL (4.8-10.8)
[2017-09-30 05:33] LABS: ALT (SGPT) 19 U/L (8-55); AST (SGOT) 20 U/L (5-34); Albumin 2.9 g/dL (3.5-5.0); Alkaline Phosphatase 178 U/L (40-150); Anion Gap 11 mmol/L (10-20); BUN (Urea Nitrogen) 9 mg/dL (8.9-20.6); Bilirubin, Total 0.5 mg/dL (0.2-1.2); Calc. Creatinine Clearance 268 mL/min (70-130); Calcium 9.1 mg/dL (7.8-10.44); Carbon Dioxide 25 mmol/L (22-29); Chloride 106 mmol/L (98-107); Estimated GFR-MDRD Greater than 90; Globulin 3.3 g/dL (2.4-3.5); Glucose 128 mg/dL (70-105); Potassium 3.5 mmol/L (3.5-5.1); Protein, Total 6.2 g/dL (6.0-8.3); Sodium 138 mmol/L (136-145)
[2017-09-30] MEDS: Levothyroxine Sodium 25 MCG TAB PO SCH (06:29)
[2017-09-30] MEDS: Levothyroxine Sodium 112 MCG TAB PO SCH (06:30)
--- NOTE | 2017-09-30 07:36 | PDOC.GSPN ---
Surgery Progress Note: Subj - Subjective Narrative: No complaints of pain. CT showed evolving pancreatitis Surgery Progress Note: Obj - Vital signs Vital signs: Vital Signs - Most Recent Temp Pulse Resp BP Pulse Ox 97.7 F 78 18 150/96 H 93 L 09/30/17 04:00 09/30/17 04:00 09/30/17 04:00 09/30/17 04:00 09/30/17 04:00 - Physical Exam General: no distress Cardiovascular: regular rate and rhythm Respiratory: clear to auscultation Abdomen: soft, tender (Epigastric) Wound: healing well Surgery Progress Note: Results - Labs Result Diagrams: 09/30/17 04:26 09/30/17 04:26 Lab results: Laboratory Results - last 24 hr 09/30/17 09/30/17 04:26 04:26 WBC 10.6 RBC 3.26 L Hgb 11.9 L Hct 34.8 L MCV 107.0 H MCH 36.6 H MCHC 34.4 RDW 12.0 Plt Count 219 MPV 7.3 L Neutrophils % 76.9 H Lymphocytes % 13.3 L Monocytes % 8.1 Eosinophils % 1.6 Basophils % 0.2 Neutrophils # 8.2 H Lymphocytes # 1.4 Monocytes # 0.9 H Eosinophils # 0.2 Basophils # 0.0 Sodium 138 Potassium 3.5 Chloride 106 Carbon Dioxide 25 Anion Gap 11 BUN 9 Creatinine 0.59 L Estimated GFR (MDRD) Greater than 90 Glucose 128 H Calcium 9.1 Total Bilirubin 0.5 AST 20 ALT 19 Alkaline Phosphatase 178 H Serum Total Protein 6.2 Albumin 2.9 L Globulin 3.3 Albumin/Globulin Ratio 0.9 L Surgery Progress Note: A/P - Problem (1) Pancreatitis Current Visit: Yes Code(s): K85.90 - ACUTE PANCREATITIS WITHOUT NECROSIS OR INFECTION, UNSP Status: Acute Assessment and Plan: CT shows persistent severe inflammation with areas of fluid collection and lack of contrast uptake. He is likely to have persistent occasional pain. There is no additional treatment needed at this time. Follow up CT scan needs to be done in 6 weeks to rule out chronic pseudocyst.
[2017-09-30] MEDS: Zinc Sulfate 220 MG CAP PO SCH (08:56)
[2017-09-30] MEDS: Docusate 100 MG CAP PO SCH (08:57)
[2017-09-30] MEDS: Amantadine HCl 100 mg Capsule PO SCH (08:57)
[2017-09-30] MEDS: Famotidine 20 MG TAB PO SCH (08:57)
[2017-09-30] MEDS: Benztropine 1 MG TAB PO SCH (08:58)
[2017-09-30] MEDS: Haloperidol 1 MG TAB PO SCH (08:58)
[2017-09-30] MEDS: Senokot S 8.6-50 MG TAB PO SCH (08:58)
[2017-09-30] MEDS: OXcarbazepine 300 MG TAB PO SCH (08:59)
[2017-09-30] MEDS: Polyethylene Glycol 3350 17 GM Packet PO SCH (08:59)
[2017-09-30] MEDS: clonazePAM 1 MG TAB PO SCH (08:59)
[2017-09-30] MEDS ORDERED: Calcium Carbonate + Vit D 250 MG TAB PO SCH (09:00)
[2017-09-30] MEDS: Loratadine 10 MG TAB PO SCH (09:20)
[2017-09-30] MEDS: Clotrimazole 1% Cream 15 GM TUBE TOP SCH (09:20)
[2017-09-30] MEDS: Enoxaparin Sodium 40 MG/0.4 ML SYRINGE SC SCH (09:20)
[2017-09-30] MEDS: Ziprasidone 20 MG CAP PO SCH (11:38)
--- NOTE | 2017-09-30 14:03 | DIS ---
DATE OF ADMISSION: 09/28/2017 DATE OF DISCHARGE: 09/30/2017 CONDITION AT THE TIME OF DISCHARGE: Stable and improved. DISCHARGE DISPOSITION: Back to [facility]. DISCHARGE DIAGNOSES: 1. Recent acute pancreatitis sequelae without any new or acute changes. 2. Recent gallstone pancreatitis, status post laparoscopic cholecystectomy. 3. Mild mental retardation. 4. Hypertension. 5. History of seizure disorder. 6. Hypothyroidism. 7. Hidradenitis. 8. History of Parkinson disease. 9. History of bipolar disorder. 10. Posttraumatic stress disorder. 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 12. Antisocial personality disorder. Clear details are not available. DISCHARGE MEDICATIONS: Remain as the same medication. I will refer the reader to the admission H&P as well as this extensive. No changes were made. PROCEDURES DONE IN THE HOSPITAL: Include; 1. Chest x-ray, which does show some bibasilar atelectasis without any pleural effusion. 2. CT scan of the abdomen and pelvis showed evolving pancreatitis with acute necrotizing pancreatiti s with necrosis of approximately 50% of the volume of the pancreas involving the majority of the panc reatic body and tail and inflammation of the adjacent soft tissues. CONSULTATIONS: General Surgery, Dr. Delon Jay. HISTORY OF PRESENT ILLNESS: Mr. Sommers is a 26-year-old male from [facility] who was recen tly admitted to our facility for acute gallstone pancreatitis and underwent laparoscopic cholecystect kareem done by Dr. Delon Jay and was discharged back to [facility]. His postoperative cours e at that time was unremarkable. His labs have improved. He was clinically better and he was discha rged in a stable condition to [facility]. Apparently, he mentions some abdominal pain there and his oxygen saturation was slightly low, so he was sent to the local emergency room. There, a CT scan was done, which showed the same findings of the CT scan done here with necrotizing pancreatitis, but the patient was transferred back here for "observation." He was admitted for the same. Unfortu nately, the transferring physician refused to accept him back even though it was a known sequelae of the recent acute pancreatitis. Dr. Delon Jay was consulted from the emergency room and he also a dvised that the patient does not need any further intervention. He was hemodynamically stable and al l of his liver enzymes and lipase were still trending down from his last admission. Because the acce pting physician did not want to take him back, but would rather get admitted for observation, he was admitted. Please see admission history and physical for further details. HOSPITAL COURSE: As expected, Mr. Sommers had an unremarkable hospital course throughout his hospit alization. He remained hemodynamically stable. His blood pressure needed no further intervention. He did not require any oxygen by supplementary roots and he was not hypoxic on room air. He was neve r febrile and did not require any pain medications or antibiotics. I tried to discharge this patient back again yesterday, but once again because of the concerns of CT scan findings done in the outside emergency room, he was denied admission again. For this reason, we ordered another CT scan and it w as consistent with the same findings of evolving pancreatitis. These findings were discussed with on -call, General Surgery, Dr. Sumner and Dr. Jay also looked at the scans. Once again, they had n o new recommendations, but rather just follow a CT scan in 6 weeks to make sure that he is not develo ping pseudocyst. Throughout his hospitalization, the patient kept walking downstairs to smoke. He was hemodynamically stable. He had good appetite. He was having normal bowel movements and on exam, his belly was arnulfo gn and he was totally asymptomatic and clinically stable. Once again, we tried to discharge this patient earlier today after all the documentation was there th at he is not having any new pancreatitis issues; Dr. Holt was the accepting physician who took the pa tient back. He will be discharged once his transportation is arranged. PHYSICAL EXAMINATION: He was seen and examined prior to discharge. VITAL SIGNS: Temperature 97.7, pulse of 78, respirations 18, saturating 93% to 97% on room air and b lood pressure 150/96. GENERAL: No acute distress. He is very upset about the fact that he was not discharged yesterday an d he is crying, but other than that, awake, alert and oriented x3. He is asking appropriate question s. CHEST: Clear to auscultation without any wheezing, rales or rhonchi. Rate and rhythm is regular wit hout any murmur, rubs or gallops. ABDOMEN: Soft, nontender and nondistended. No guarding, rebound or rigidity. Bowel sounds are pres ent. EXTREMITIES: Free of any cyanosis, clubbing, or edema. NEUROLOGIC: Nonfocal. LABORATORY EXAMINATION: CBC shows WBCs at 10.6, which was 12.1 on admission, hemoglobin 11.9 and cindy telet count of 219. Serum chemistries are unremarkable. His blood sugar is 110-128. Lactic acid 0. 2. AST, ALT and alkaline phosphatase are still trending down from his last hospitalization. His AST is 20, ALT 19, alkaline phosphatase 178, which was 272 on presentation. Lipase is anywhere from 257 -321. IMAGING DATA: CT scan results as above. I have discussed the care plan with the accepting physician, Dr. Holt and have updated him that he wo uld need a repeat CT scan in 6 weeks and follow up with Dr. Jay as an outpatient. This will be a rranged by [employer]. Total time spent in the discharge of this patient is 40 minutes including [id number] exam, but most of the time was spent in arranging the discharge of this patient including the time spent in trying to get hold off accepting physician.
[2017-09-30 14:16] VITALS: BP 152/90; TEMP 98
== END 2017-09-30 15:28 | disposition short-term general hospital (02) ==
LOC: ERS 05:55 → T4-A 13:52
PROVIDERS: ADMIT Internal Medicine; ATTEND Internal Medicine
DX: K85.90 Acute pancreatitis without necrosis or infection, unspecified (principal); F70 Mild intellectual disabilities; I10 Essential (primary) hypertension; G40.909 Epilepsy, unspecified, not intractable, without status epilepticus; E03.9 Hypothyroidism, unspecified; L73.2 Hidradenitis suppurativa; G20 Parkinson's disease; F31.9 Bipolar disorder, unspecified; F60.0 Paranoid personality disorder; F60.2 Antisocial personality disorder; J98.11 Atelectasis; F17.210 Nicotine dependence, cigarettes, uncomplicated; Z79.899 Other long term (current) drug therapy; Z88.8 Allergy status to other drugs, medicaments and biological substances; Z90.49 Acquired absence of other specified parts of digestive tract; Z98.890 Other specified postprocedural states
CPT/HCPCS: 71045; 74177; 80053 ×2; 80076; 83605; 83690 ×3; 85025 ×3; 96360; 99291; 99406; G0378; 36415; A4216; J1650